=== PATIENT | female | born 1955 | race Caucasian/White ===

== ENCOUNTER 2021-04-01 12:29 | Inpatient (IN) ==
[2021-04-01] MEDS ORDERED: metroNIDAZOLE 500 MG/100 ML BAG IV STA (13:06)
[2021-04-01] MEDS ORDERED: CIPROFLOXACIN / D5W 400 MG/200 ML BAG IV STA (13:06)
[2021-04-01 13:12] LABS: Basophils # (auto) 0.01 K/uL (0-0.2); Basophils % (auto) 0.1 %; Eosinophils # (auto) 0.02 K/uL (0-0.5); Eosinophils % (auto) 0.3 %; Hematocrit (blood only) 41.6 % (37-47); Hemoglobin 14.2 g/dL (12.0-16.0); Immature Granulocytes # (auto) 0.01 K/uL (0.00-0.02); Immature Granulocytes % (auto) 0.1 %; Lymphocytes # (auto) 0.84 K/uL (1.2-3.4); Lymphocytes % (auto) 11.9 %; Mean Corpuscular Hemoglobin 31.1 pg (25-34); Mean Corpuscular Hgb Conc 34.1 g/dL (32-36); Mean Corpuscular Volume 91.2 fL (80-100); Mean Platelet Volume 9.1 fL (7.4-10.4); Monocytes # (auto) 0.53 K/uL (0.11-0.59); Monocytes % (auto) 7.5 %; Neutrophils # (auto) 5.62 K/uL (1.4-6.5); Neutrophils % (auto) 80.1 %; Platelet Count 198 K/uL (130-400); RDW Coefficient of Variation 13.3 % (11.5-14.5); RDW Standard Deviation 44.4 fL (36.4-46.3); Red Blood Count 4.56 M/uL (4.2-5.4); White Blood Count 7.03 K/uL (4.8-10.8)
[2021-04-01] MEDS: SODIUM CHLORIDE 0.9% 1000ML 1,000 ML IV SCH (13:24)
[2021-04-01 13:32] LABS: Alanine Aminotransferase 18 U/L (12-78); Albumin Level 3.2 gm/dl (3.4-5.0); Aspartate Aminotransferase 20 U/L (15-37); BUN Creatinine Ratio 9.4 (10-20); Blood Urea Nitrogen 7 mg/dl (7-18); Calcium 8.8 mg/dl (8.5-10.1); Carbon Dioxide 25 mmol/L (21-32); Chloride 107 mmol/L (98-107); Creatinine Clr Calc Pharmacy 72.2 ml/min; Est GFR (African American) 100.9 ml/min; Glucose 133 mg/dl (70-99); Lipase 1242 U/L (73-393); Potassium 3.9 mmol/L (3.5-5.1); Sodium 139 mmol/L (136-145)
[2021-04-01 13:35] LABS: Alkaline Phosphatase 69 U/L (45-117); Bilirubin Direct < 0.1 mg/dl (0-0.2); Bilirubin,Total 0.3 mg/dl (0.2-1); Total Protein 6.1 gm/dl (6.4-8.2)
--- NOTE | 2021-04-01 13:51 | Emergency Department Note ---
History of Present Illness General Chief complaint: Referred by Doctor Stated complaint: REFERRED BY PCP Time Seen by Provider: 04/01/21 12:35 History of Present Illness Provider complaint: Referred by etl informatica architect Onset (ago): day(s) 1 Maximum Pain Intensity: 5 Current Pain Intensity: 0 66-year-old female was referred to the emergency department for admission by GI Dr. Barrios. Dr. Barrios had performed an ERCP on the patient for recurrent sphincter of Oddi spasm and the patient had to have a biliary stent placed. He wants the patient to be admitted to the hospitalist team and try to directly admit the patient however they were unable to accommodate this so the patient was referred to the emergency department for admission. Patient denies any nausea vomiting. She currently denies any abdominal pain. Past Med/Surg History Medical History (Updated 04/01/21 @ 14:17 by Jc Jackson) Depression PUD (peptic ulcer disease) Surgical History (Updated 04/01/21 @ 14:17 by Jc Jackson) History of appendectomy History of biliary duct stent placement Social History Smoking Status: Never smoker Preferred Language: Welsh Feels Safe at Home: Yes Review of Systems A total of 6 systems reviewed and were otherwise negative Physical Exam Vital Signs Vital Signs - 24 hr 04/01/21 12:50 04/01/21 12:54 04/01/21 13:00 Temperature 36.8 C Temperature Source Oral Pulse Rate 93 H 85 86 Pulse Rate from SpO2 Sensor 86 86 Respiratory Rate 18 24 24 Respiratory Depth Normal Blood Pressure 140/88 131/87 Blood Pressure Mean 105 101 Pulse Oximetry 96 96 97 Sepsis Recent Fever Within 48 Hours No Sepsis New/Unexplained Change in Mental Status N/A Sepsis Action Taken by Nursing No Action Required 04/01/21 13:30 Temperature Temperature Source Pulse Rate 84 Pulse Rate from SpO2 Sensor 83 Respiratory Rate 21 Respiratory Depth Blood Pressure Blood Pressure Mean Pulse Oximetry 96 Sepsis Recent Fever Within 48 Hours Sepsis New/Unexplained Change in Mental Status Sepsis Action Taken by Nursing Physical Exam GENERAL: She is oriented to person, place, and time. She appears well-developed and well-nourished. She does not appear distressed. HENT: Exam performed. -Head: Normocephalic and atraumatic. -Right Ear: External ear normal. No mastoid tenderness. -Left Ear: External ear normal. No mastoid tenderness. -Mouth/Throat: The oropharynx is clear and moist. No trismus in the jaw. No dental abscesses or uvula swelling. No oropharyngeal exudate or tonsillar abscesses. EYES: Conjunctivae and EOM are normal. Pupils are equal, round, and reactive to light. Right eye exhibits no discharge. Left eye exhibits no discharge. No scleral icterus. NECK: Normal range of motion. Neck supple. No JVD present. No spinous process tenderness present. No carotid bruit present. No rigidity. No tracheal deviation and normal range of motion present. No Brudzinski's sign and no Kernig's sign noted. CV: Normal rate, regular rhythm, normal heart sounds and intact distal pulses. There is no peripheral edema. Palpable radial pulses bue. PULM/CHEST: Effort normal and breath sounds normal. No respiratory distress. No stridor. She has no wheezes. She has no rales. -Chest Wall: She exhibits no tenderness. ABD: The abdomen is soft. Bowel sounds are normal. She has no distension. No mass is present. There is no tenderness. There is no rebound, no guarding, no Pop's sign and no tenderness at McBurney's point. Rovsig negative MUSC/SKEL: Normal range of motion. There is no peripheral edema, tenderness or deformity. LYMPH: No cervical adenopathy. NEURO: She is alert and oriented to person, place, and time. She has normal s trength. No cranial nerve deficit or sensory deficit. Coordination and gait normal. GCS eye subscore is 4. GCS verbal subscore is 5. GCS motor subscore is 6. Cerebellar tests wnl. SKIN: Skin is warm and dry. She is not diaphoretic. PSYCH: She has a normal mood and affect. Behavior is normal. Judgment and thought content normal. Course Course 1235: The patient was evaluated in room B4. A complete history and physical exam was performed Administered Medications Sodium Chloride (Nss 1000ml) 1,000 mls @ 80 mls/hr IV .[id number] MINNIE Stop: 05/01/21 12:44 Last Admin: 04/01/21 13:24 Dose: 80 mls/hr Documented by: [id number] Discontinued Medications Ciprofloxacin (Cipro / D5w) 400 mg in 200 mls @ 200 mls/hr IV NOW STA Stop: 04/01/21 14:05 Last Admin: 04/01/21 13:15 Dose: Not Given Documented by: [id number] Metronidazole (Flagyl) 500 mg in 100 mls @ 100 mls/hr IV NOW STA Stop: 04/01/21 14:05 Last Admin: 04/01/21 13:24 Dose: 100 mls/hr Documented by: [id number] Medical Decision Making Laboratory Data Result diagrams: 04/01/21 12:55 04/01/21 12:55 Lab Results 04/01/21 04/01/21 04/01/21 Range/Units 12:55 12:55 13:05 WBC 7.03 (4.8-10.8) K/uL RBC 4.56 (4.2-5.4) M/uL Hgb 14.2 (12.0-16.0) g/dL Hct 41.6 (37-47) % MCV 91.2 (80-100) fL MCH 31.1 (25-34) pg MCHC 34.1 (32-36) g/dL RDW Std Deviation 44.4 (36.4-46.3) fL RDW Coeff of Dyana 13.3 (11.5-14.5) % Plt Count 198 (130-400) K/uL MPV 9.1 (7.4-10.4) fL Immature Gran % (Auto) 0.1 % Neut % (Auto) 80.1 % Lymph % (Auto) 11.9 % [place] % (Auto) 7.5 % Eos % (Auto) 0.3 % Baso % (Auto) 0.1 % Neut # (Auto) 5.62 (1.4-6.5) K/uL Lymph # (Auto) 0.84 L (1.2-3.4) K/uL [place] # (Auto) 0.53 (0.11-0.59) K/uL Eos # (Auto) 0.02 (0-0.5) K/uL Baso # (Auto) 0.01 (0-0.2) K/uL Immature Gran # (Auto) 0.01 (0.00-0.02) K/uL Sodium 139 (136-145) mmol/L Potassium 3.9 (3.5-5.1) mmol/L Chloride 107 (98-107) mmol/L Carbon Dioxide 25 (21-32) mmol/L Anion Gap 7.0 (3-11) BUN 7 (7-18) mg/dl Creatinine 0.73 (0.6-1.2) mg/dl Est Cr Clr Drug Dosing 72.2 ml/min Est GFR ( Amer) 100.9 ml/min Est GFR (Non-Af Amer) 87.0 ml/min BUN/Creatinine Ratio 9.4 L (10-20) Glucose 133 H (70-99) mg/dl Calcium 8.8 (8.5-10.1) mg/dl Total Bilirubin 0.3 (0.2-1) mg/dl Direct Bilirubin < 0.1 (0-0.2) mg/dl AST 20 (15-37) U/L ALT 18 (12-78) U/L Alkaline Phosphatase 69 (45-117) U/L Total Protein 6.1 L (6.4-8.2) gm/dl Albumin 3.2 L (3.4-5.0) gm/dl Lipase 1242 H (73-393) U/L COVID-19 Eval Order Covid19 at [facility] SARS-CoV-2 (PCR) (Negative) 04/01/21 Range/Units 13:05 WBC (4.8-10.8) K/uL RBC (4.2-5.4) M/uL Hgb (12.0-16.0) g/dL Hct (37-47) % MCV (80-100) fL MCH (25-34) pg MCHC (32-36) g/dL RDW Std Deviation (36.4-46.3) fL RDW Coeff of Dyana (11.5-14.5) % Plt Count (130-400) K/uL MPV (7.4-10.4) fL Immature Gran % (Auto) % Neut % (Auto) % Lymph % (Auto) % [place] % (Auto) % Eos % (Auto) % Baso % (Auto) % Neut # (Auto) (1.4-6.5) K/uL Lymph # (Auto) (1.2-3.4) K/uL [place] # (Auto) (0.11-0.59) K/uL Eos # (Auto) (0-0.5) K/uL Baso # (Auto) (0-0.2) K/uL Immature Gran # (Auto) (0.00-0.02) K/uL Sodium (136-145) mmol/L Potassium (3.5-5.1) mmol/L Chloride (98-107) mmol/L Carbon Dioxide (21-32) mmol/L Anion Gap (3-11) BUN (7-18) mg/dl Creatinine (0.6-1.2) mg/dl Est Cr Clr Drug Dosing ml/min Est GFR ( Amer) ml/min Est GFR (Non-Af Amer) ml/min BUN/Creatinine Ratio (10-20) Glucose (70-99) mg/dl Calcium (8.5-10.1) mg/dl Total Bilirubin (0.2-1) mg/dl Direct Bilirubin (0-0.2) mg/dl AST (15-37) U/L ALT (12-78) U/L Alkaline Phosphatase (45-117) U/L Total Protein (6.4-8.2) gm/dl Albumin (3.4-5.0) gm/dl Lipase (73-393) U/L COVID-19 Eval Order SARS-CoV-2 (PCR) NEGATIVE (Negative) MDM Narrative Spoke with patient's GI doctor Dr. Barrios he stated he wanted the patient admitted to the [facility] hospitalist team he recommends that the patient be n.p.o., have IV fluids at 75 cc an hour, received IV antibiotics Flagyl as the patient received Cipro earlier today. He states if there are any questions regarding her that he is to be contacted via his cell phone or [place] text directly. I discussed this with Roseanne damian [facility] [employer]IST who acknowledged to contact Dr. Barrios with any questions regarding her procedure or GI ques tions, she states to admit to Dr. Stoner. Impression & Plan History of biliary duct stent placement Discharge Plan Visit Data Chief Complaint: Referred by Doctor Stated Complaint: REFERRED BY PCP ED Provider: Jc Jackson Discharge Problem: History of biliary duct stent placement Patient Disposition: Being Evaluated by Hospitalist Forms Stand Alone Forms: My [facility] Referrals Referrals: Shonda May, [Primary Care Provider] -
--- NOTE | 2021-04-01 16:09 | Gastrointestinal Consultation ---
Date of Consultation April 01, 2021 Assessment & Plan (1) Sphincter of Oddi spasm: s/p ERCP with sphincterotomy requiring FCMS placement due to periampullary extravasation (Type II). Currently doing well with no symptoms, Vitals and labs normal. Recommend: Clinical observation. NPO for now. IV Hydration. IV PPI. IV Octreotide once daily to decrease gastric output. IV Cipro/Flagyl. Plan for CT scan abdomen with IV/PO contrast tomorrow. Call me anytime including after hours regarding the patient's management or any change in her clinical status. 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 She admitted to the hospital for observation. She feels fine and doing well now, no abdominal pain or other symptoms. Labs reviewed and WBC and LFTs normal. Her Lipase is elevated which is expected as it was measured im mediately after an ERCP. Allergies Allergy/AdvReac Type Severity Reaction Status Date / Time amoxicillin Allergy Unknown Unverified 04/01/21 14:23 azithromycin Allergy Unknown Unverified 04/01/21 14:23 Penicillins Allergy Unknown Unverified 04/01/21 14:23 Home Medications Medication Instructions Recorded Confirmed Type clindamycin phosphate 1 % lotion 1 applic TOPICAL BID 04/01/21 04/01/21 History clonazepam 0.5 mg tablet 0.25 mg PO DAILY 04/01/21 04/01/21 History clonazepam 0.5 mg tablet 0.5 mg PO HS 04/01/21 04/01/21 History duloxetine 60 mg capsule,delayed 120 mg PO DAILY 04/01/21 04/01/21 History release sprinkle lamotrigine 25 mg tablet 100 mg PO DAILY 04/01/21 04/01/21 History levothyroxine 75 mcg tablet 75 mcg PO DAILY 04/01/21 04/01/21 History (Synthroid) pantoprazole 40 mg tablet,delayed 40 mg PO BID 04/01/21 04/01/21 History release semaglutide (Ozempic) 0.25 mg SUBCUT WK 04/01/21 04/01/21 History sucralfate 1 gram tablet 1 g PO BID 04/01/21 04/01/21 History sumatriptan succinate 100 mg tablet 100 mg PO DAILY PRN 04/01/21 04/01/21 History trazodone 100 mg tablet 100 mg PO HS 04/01/21 04/01/21 History Patient History Medical History (Updated 04/01/21 @ 16:16 by Scott Barrios MD) Depression PUD (peptic ulcer disease) Surgical History (Updated 04/01/21 @ 14:17 by Jc Jackson) History of appendectomy History of biliary duct stent placement Social History Smoking Status: Never smoker Preferred Language: Turkmen Feels Safe at Home: Yes Review of Systems Constitutional: no fever, no chills, no fatigue and no weight loss Eyes: no eye pain and no worsening vision Ear, Nose, Mouth, Throat: no tinnitus, no dizziness, no nasal discharge and no epistaxis Respiratory: no cough, no dyspnea, no dyspnea on exertion and no wheezing Cardiovascular: no chest pain, no orthopnea, no palpitations and no edema Gastrointestinal: as per Subjective / HPI Genitourinary: no dysuria, no urinary frequency, no urinary incontinence and no hematuria Musculoskeletal: no stiffness and no myalgia Neurologic: no localized weakness, no paralysis, no tremor(s) and no headache(s) Endocrine: no polydipsia and no polyuria Hematologic / Lymphatic: no easy bleeding and no night sweats Physical Exam Constitutional: + well hydrated, cooperative and comfortable Eyes: PERRL, conjunctivae normal, anicteric sclerae ENMT: external ear and nose normal, oropharynx normal Neck: normal visual inspection and trachea midline Respiratory: normal respiratory effort, lungs clear to auscultation Auscultation: no wheezes Cardiovascular: RRR, no murmur, no edema Gastrointestinal (Abdomen): normal bowel sounds, soft, nontender, no hepatosplenomegaly Musculoskeletal: no cyanosis or clubbing, extremities motor strength 5/5 Skin: no rashes, warm and dry Neurologic: awake; no focal motor deficits Motor/Sensory: no tremor Results & Data ([facility]) Vital Signs (Past 12 Hours) Vital Signs Temp Pulse Resp BP Pulse Ox 04/01/21 14:54 83 18 108/72 97 04/01/21 13:30 84 21 96 04/01/21 13:00 86 24 131/87 97 04/01/21 12:54 85 24 96 04/01/21 12:50 36.8 C 93 H 18 140/88 96 Laboratory Results Laboratory Results - last 24 hr 04/01/21 04/01/21 04/01/21 12:55 12:55 13:05 WBC 7.03 RBC 4.56 Hgb 14.2 Hct 41.6 MCV 91.2 MCH 31.1 MCHC 34.1 RDW Std Deviation 44.4 RDW Coeff of Dyana 13.3 Plt Count 198 MPV 9.1 Immature Gran % (Auto) 0.1 Neut % (Auto) 80.1 Lymph % (Auto) 11.9 [place] % (Auto) 7.5 Eos % (Auto) 0.3 Baso % (Auto) 0.1 Neut # (Auto) 5.62 Lymph # (Auto) 0.84 L [place] # (Auto) 0.53 Eos # (Auto) 0.02 Baso # (Auto) 0.01 Immature Gran # (Auto) 0.01 Sodium 139 Potassium 3.9 Chloride 107 Carbon Dioxide 25 Anion Gap 7.0 BUN 7 Creatinine 0.73 Est Cr Clr Drug Dosing 72.2 Est GFR ( Amer) 100.9 Est GFR (Non-Af Amer) 87.0 BUN/Creatinine Ratio 9.4 L Glucose 133 H Calcium 8.8 Total Bilirubin 0.3 Direct Bilirubin < 0.1 AST 20 ALT 18 Alkaline Phosphatase 69 Total Protein 6.1 L Albumin 3.2 L Lipase 1242 H COVID-19 Eval Order Covid19 at [facility] SARS-CoV-2 (PCR) 04/01/21 13:05 WBC RBC Hgb Hct MCV MCH MCHC RDW Std Deviation RDW Coeff of Dyana Plt Count MPV Immature Gran % (Auto) Neut % (Auto) Lymph % (Auto) [place] % (Auto) Eos % (Auto) Baso % (Auto) Neut # (Auto) Lymph # (Auto) [place] # (Auto) Eos # (Auto) Baso # (Auto) Immature Gran # (Auto) Sodium Potassium Chloride Carbon Dioxide Anion Gap BUN Creatinine Est Cr Clr Drug Dosing Est GFR ( Amer) Est GFR (Non-Af Amer) BUN/Creatinine Ratio Glucose Calcium Total Bilirubin Direct Bilirubin AST ALT Alkaline Phosphatase Total Protein Albumin Lipase COVID-19 Eval Order SARS-CoV-2 (PCR) NEGATIVE
[2021-04-01] MEDS: metroNIDAZOLE 500 MG/100 ML BAG IV SCH (16:43)
--- NOTE | 2021-04-01 17:09 | History & Physical Report ---
Date of Service April 01, 2021 Assessment & Plan (1) History of biliary duct stent placement: (2) Sphincter of Oddi spasm: Plan: -Admit to [facility] -s/p ERCP with sphincterotomy requiring FCMS placement due to periampullary extravasation (Type II) -N.p.o., IVF -IV Cipro/Flagyl -IV PPI, IV octreotide -Lipase 1200 -follow-up in a.m. with LFTs -CT ABD/pelvis IV/p.o. contrast tomorrow morning -Per Dr. Barrios - "Call me anytime including after hours regarding the patient's management or any change in her clinical status" (3) Hypothyroidism: Plan: -Continue levothyroxine (4) Anxiety: (5) Depression: Plan: -Continue home meds (6) Insulin resistance: Plan: -Managed with weekly Ozempic at home -Monitor glucose -Follows with GI nutrition (7) DVT prophylaxis: Plan: -SCDs Admission and Anticipated Discharge Date Admission Date: April 01, 2021 History of Present Illness Chief Complaint: Referred to hospital post ERCP Primary Care Provider: Shonda May DO 66-year-old female PMH hypothyroidism, insulin resistance, GERD, anxiety, depression, sphincter of Oddi dysfunction s/p ERCP x 2 in the past, who was referred from outpatient [facility] post (per GI note) "elective ERCP today for treatment of recurrent SOD, 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 Currently patient reports mild nausea, otherwise feeling well. Denies pain. Reports ongoing GI issues for the past few months (nausea, poor appetite, epiga stric discomfort, diarrhea). No fevers or chills. Denies chest pain or shortness of breath. No lightheadedness, dizziness, diaphoresis, syncopal events. She denies urinary symptoms. In the ED, labs are unremarkable with exception of lipase 1200. Patient is hemodynamically stable. Patient received IV Cipro, IV Flagyl, IVF per the discretion of GI. Allergies Allergy/AdvReac Type Severity Reaction Status Date / Time amoxicillin Allergy Unknown Unverified 04/01/21 14:23 azithromycin Allergy Unknown Unverified 04/01/21 14:23 Penicillins Allergy Unknown Unverified 04/01/21 14:23 Home Medications Medication Instructions Recorded Confirmed Type clindamycin phosphate 1 % lotion 1 applic TOPICAL BID 04/01/21 04/01/21 History clonazepam 0.5 mg tablet 0.25 mg PO DAILY 04/01/21 04/01/21 History clonazepam 0.5 mg tablet 0.5 mg PO HS 04/01/21 04/01/21 History duloxetine 60 mg capsule,delayed 120 mg PO DAILY 04/01/21 04/01/21 History release sprinkle lamotrigine 25 mg tablet 100 mg PO DAILY 04/01/21 04/01/21 History levothyroxine 75 mcg tablet 75 mcg PO DAILY 04/01/21 04/01/21 History (Synthroid) pantoprazole 40 mg tablet,delayed 40 mg PO BID 04/01/21 04/01/21 History release semaglutide (Ozempic) 0.25 mg SUBCUT WK 04/01/21 04/01/21 History sucralfate 1 gram tablet 1 g PO BID 04/01/21 04/01/21 History sumatriptan succinate 100 mg tablet 100 mg PO DAILY PRN 04/01/21 04/01/21 History trazodone 100 mg tablet 100 mg PO HS 04/01/21 04/01/21 History Past Med/Surg History Medical History (Updated 04/01/21 @ 17:21 by BRYCE Pearson) Anxiety Depression Hypothyroidism Insulin resistance PUD (peptic ulcer disease) Sphincter of Oddi spasm Surgical History H/O dilation and curettage History of appendectomy History of biliary duct stent placement History of cholecystectomy Status post breast reduction Family History Mother Pancreatic cancer Social History Smoking Status: Never smoker Second Hand Exposure: No; Do You Dip or Chew Tobacco: No; Tobacco Cessation Education Requested by Patient: No Hx Alcohol Use: No Hx Substance Use: No Preferred Language: Cuban Communication Ability: Effective Clinical Resource Manager Required: No Beliefs That Will Affect Care: None Current Living Situation: Spouse Feels Safe at Home: Yes Safety Concerns: Feels Safe At This Time Assistive Devices: None Review of Systems Review of Systems: ROS per HPI, all other systems reviewed and negative Physical Exam Constitutional: WD/WN, vitals as above Eyes: PERRL, conjunctivae normal, anicteric sclerae ENMT: external ear and nose normal, oropharynx normal Respiratory: normal respiratory effort, lungs clear to auscultation Cardiovascular: Rate/Rhythm: regular rate and regular rhythm Vessels: normal peripheral pulses Extremities: no edema Gastrointestinal (Abdomen): Inspection/Auscultation: normal bowel sounds Percussion/Palpation: + abdomen tender (mild epigastric with deep palpation) and abdomen soft; no hepatosplenomegaly Musculoskeletal: no cyanosis or clubbing, extremities motor strength 5/5 Skin: no rashes, warm and dry Neurologic: PERRL, EOMI, accommodation nl, no face palsy, no dysarthria Psychiatric: A+Ox3, euthymic affect Results & Data Results & Data ([facility]) Vital Signs (Past 12 Hours) Vital Signs Temp Pulse Resp BP Pulse Ox 04/01/21 14:54 83 18 108/72 97 04/01/21 13:30 84 21 96 04/01/21 13:00 86 24 131/87 97 04/01/21 12:54 85 24 96 04/01/21 12:50 36.8 C 93 H 18 140/88 96 Laboratory Results Short CBC 04/01/21 Range/Units 12:55 WBC 7.03 (4.8-10.8) K/uL Hgb 14.2 (12.0-16.0) g/dL Hct 41.6 (37-47) % Plt Count 198 (130-400) K/uL [facility] 04/01/21 12:55 Sodium 139 Potassium 3.9 Chloride 107 Carbon Dioxide 25 BUN 7 Creatinine 0.73 Glucose 133 H Calcium 8.8 Liver Function 04/01/21 Range/Units 12:55 Total Bilirubin 0.3 (0.2-1) mg/dl Direct Bilirubin < 0.1 (0-0.2) mg/dl AST 20 (15-37) U/L ALT 18 (12-78) U/L Alkaline Phosphatase 69 (45-117) U/L Albumin 3.2 L (3.4-5.0) gm/dl Code Status & VTE Plan Code Status Patient is a full code as per my discussion with her. VTE Prophylaxis Plan VTE Prophylaxis will be ordered: Yes Supervising Physician Co-Signing Physician Notes History and physical exam performed by me, detailed by Rosaenne WU, notable for 67-year-old woman with hypothyroidism, insulin resistance, GERD, anxiety depression, sphincter of Oddi dysfunction status post ERCP x2 in the past who had elective ERCP today for recurrent SOD was noted to have papillary stenosis related to scarring from prior therapies with a treatment of biliary access but noted to have periampullary retroperitoneal extravasation of contrast after extending the sphincterotomy and a fully covered metal stent was placed to seal the area per report; pain admitted for observation postprocedure Patient currently under reports some abdominal discomfort. Exam was mostly unremarkable. Lab work notable for elevated lipase. We will keep n.p.o. for now GI recommendations noted Continue IV PPI and octreotide Continue IV Cipro and Flagyl We will get CT abdomen with IV and p.o. contrast tomorrow per GI. Agree with other plans as detailed by Roseanne WU
[2021-04-01] MEDS: CIPROFLOXACIN / D5W 400 MG/200 ML BAG IV SCH (18:01)
[2021-04-01] MEDS: OCTREOTIDE ACETATE 100 MCG in SYRINGE 9 ML IV SCH (18:04)
[2021-04-01] MEDS: ONDANSETRON INJ 2 MG/ML 2 ML VIAL IV PRN (18:17)
[2021-04-01] MEDS ORDERED: FLUARIX QUADRIVALENT 0.5 ML SYR IM ONE (19:00)
[2021-04-01] MEDS: clonazePAM 0.5 MG TAB PO SCH (20:27)
[2021-04-01] MEDS: traZODone HCL 100 MG TAB PO SCH (20:27)
[2021-04-01] MEDS: SUCRALFATE 1 GM TAB PO SCH (20:27)
[2021-04-01] MEDS ORDERED: PANTOprazole 40 MG TAB PO SCH (21:00)
[2021-04-01] MEDS: ACETAMINOPHEN 325 MG TAB PO PRN (23:42)
[2021-04-02] MEDS: metroNIDAZOLE 500 MG/100 ML BAG IV SCH ×4 (01:07→23:23)
[2021-04-02] MEDS: SODIUM CHLORIDE 0.9% 1000ML 1,000 ML IV SCH ×2 (01:57→15:48)
[2021-04-02] MEDS: CIPROFLOXACIN / D5W 400 MG/200 ML BAG IV SCH ×2 (05:07→17:54)
[2021-04-02] MEDS: LEVOTHYROXINE SODIUM 75 MCG TABLET PO SCH (05:07)
[2021-04-02 07:28] LABS: Hematocrit (blood only) 42.7 % (37-47); Hemoglobin 14.5 g/dL (12.0-16.0); Mean Corpuscular Hemoglobin 31.1 pg (25-34); Mean Corpuscular Volume 91.6 fL (80-100); Mean Platelet Volume 9.4 fL (7.4-10.4); Platelet Count 186 K/uL (130-400); RDW Coefficient of Variation 13.5 % (11.5-14.5); RDW Standard Deviation 44.6 fL (36.4-46.3); Red Blood Count 4.66 M/uL (4.2-5.4); White Blood Count 6.65 K/uL (4.8-10.8)
[2021-04-02] MEDS: SUMAtriptan succinate 100 MG TAB PO PRN (07:47)
[2021-04-02 08:02] LABS: BUN Creatinine Ratio 7.9 (10-20); Calcium 8.7 mg/dl (8.5-10.1); Creatinine Clr Calc Pharmacy 90.9 ml/min; Est GFR (African American) 112.9 ml/min; Est GFR (Non-African American) 97.4 ml/min; Potassium 3.4 mmol/L (3.5-5.1)
[2021-04-02 08:05] LABS: Albumin Globulin Ratio 1.1 (0.9-2); Bilirubin,Total 0.7 mg/dl (0.2-1); Globulin 2.8 gm/dl (2.5-4.0); Total Protein 5.8 gm/dl (6.4-8.2)
[2021-04-02] MEDS: ONDANSETRON INJ 2 MG/ML 2 ML VIAL IV PRN ×2 (09:11→16:37)
[2021-04-02] MEDS ORDERED: OPTIRAY 320 100ml IV ONE (09:57)
[2021-04-02] MEDS: lamoTRIgine 100 MG TAB PO SCH (10:16)
[2021-04-02] MEDS: DULoxetine HCL 60 MG CAP PO SCH (10:16)
[2021-04-02] MEDS: SUCRALFATE 1 GM TAB PO SCH ×2 (10:16→21:24)
[2021-04-02] MEDS: OCTREOTIDE ACETATE 100 MCG in SYRINGE 9 ML IV SCH (10:17)
--- NOTE | 2021-04-02 10:27 | CT Scan Report ---
CT abd pelvis oral and IV con CLINICAL HISTORY: s/p ERCP w/ biliary leak TECHNIQUE: Helical axial images of the abdomen and pelvis were obtained and displayed. Automated dose lowering techniques and/or adjustment according to patient size were utilized for this exam. This e xam was performed with intravenous contrast. COMPARISON: None available at the time of this dictation. FINDINGS: Lower chest: Bibasilar atelectasis is seen. Liver: Left shift Gallbladder and biliary tree: Surgically absent. There is diffuse soft tissue stranding and air in th e gallbladder fossa. Pneumobilia is seen. A stent is noted in the distal biliary duct. Pancreas: There is prominence of the pancreatic duct measuring up to 4 mm in diameter in the pancreat ic body. Spleen: Unremarkable. Adrenals: Unremarkable. Kidneys and ureters: Unremarkable. Bladder: Unremarkable. Reproductive organs: Unremarkable. Bowel: Status post appendectomy. Lymph nodes Retroperitoneal: Unremarkable. Mesenteric: Subcentimeter lymph nodes are noted. Pelvic: Unremarkable. Peritoneum: There is pneumoperitoneum and soft tissue stranding most prominently in the right upper q uadrant and mid abdomen. Vessels: Atherosclerotic calcifications are seen. Abdominal wall: Unremarkable. Bones: Degenerative changes in the visualized spine. IMPRESSION: 1. Status post cholecystectomy with placement of a biliary stent. There is pneumoperitoneum and fat stranding secondary to biliary leak. 2. Prominence of the biliary ducts with apparent atrophy of the pancreatic tail. 3. Physiologic pneumobilia. ACT 112: Negative or not required by law. Electronically signed by: Jerzy Mcdonough M.D. 04/02/2021 10:25 AM
[2021-04-02] MEDS: clonazePAM 0.25 MG TAB PO SCH (10:30)
--- NOTE | 2021-04-02 11:12 | Hospitalist Progress Note ---
Date of Service April 02, 2021 Assessment & Plan (1) History of biliary duct stent placement: (2) Sphincter of Oddi spasm: Plan: Admitted to [facility] S/p ERCP with sphincterotomy requiring FCMS placement due to periampullary extravasation (Type II) Keep NPO for now with gentle IV fluids, continue IV cipro/flagyl, IV PPI, IV Octreotide, antiemetics CT abd/pelvis with pneumoperitoneum and fat stranding secondary to biliary leak Discussed with GI. CT findings consistent with biliary leak which is now fixed. No changes to current plan Continue trending CMP, lipase Per Dr. Barrios - "Call me anytime including after hours regarding the patient's management or any change in her clinical status" (3) Hypothyroidism: Plan: Continue levothyroxine (4) Anxiety: (5) Depression: Plan: Continue home meds (6) Insulin resistance: Plan: Managed with weekly Ozempic at home Monitor glucose Follows with GI nutrition (7) DVT prophylaxis: Plan: SCDs for now. Consider adding chemical ppx tomorrow PCP: Lalo Dispo: Admitted to med/surg. Patient seen in collaboration with Dr. Alva. Please see addendum. Admission and Anticipated Discharge Date Admission Date: April 01, 2021 Supervising Physician Co-Signing Physician Notes Patient seen and examined Reported migraine earlier this AM which is improved with imitrex Had nausea and one episode of vomiting last night Reports some abd discomfort Physical exam notable for mild right abd tenderness Labs notable for elevated lipase, K of 3.4 CT abd/P today showed pneumoperitoneum/fat stranding due to biliary leak, physiologic pneumobilia Hemodynamically stable GI on board Continue IV ppi, octreotide and npo Continue IVF Agree with other plans as detailed by Samanta Reveles PA-C Subjective Patient seen and examined in 387-1. Feeling nauseated today but slightly improved after napping. Just received additional antiemetic. Does have diffuse abdominal pain similar to yesterday. Denies any fever, chills, lightheadedness, chest pain, shortness of breath, vomiting, dysuria, diarrhea or constipation. Review of Systems Review of Systems: ROS per HPI, all other systems reviewed and negative Physical Exam Physical Exam: Gen: WD/WN, NAD, lying in bed, A&Ox3 HEENT: Normocephalic, atraumatic, conjunctivae moist, sclerae anicteric, mucous membranes moist Lung: Clear to Auscultation bilaterally, no wheezes/rales/rhonchi Heart: Regular rate, regular rhythm, no murmurs, rubs, or gallops Abdomen: Soft, diffusely tender but no guarding, +BS x 4 Extremities: no edema Skin: Warm, no rash Results & Data Results & Data ([facility]) Vital Signs (Past 12 Hours) Vital Signs Temp Pulse Resp BP BP Pulse Ox 04/02/21 10:58 37.3 C 86 14 146/86 H 96 04/02/21 08:14 37 C 100 H 16 117/81 117/81 92 Laboratory Results Short CBC 04/02/21 Range/Units 07:17 WBC 6.65 (4.8-10.8) K/uL Hgb 14.5 (12.0-16.0) g/dL Hct 42.7 (37-47) % Plt Count 186 (130-400) K/uL BMP 04/02/21 07:17 Sodium 142 Potassium 3.4 L Chloride 112 H Carbon Dioxide 25 BUN 5 L Creatinine 0.58 L Glucose 127 H Calcium 8.7 Liver Function 04/02/21 Range/Units 07:17 Total Bilirubin 0.7 (0.2-1) mg/dl AST 14 L (15-37) U/L ALT 13 (12-78) U/L Alkaline Phosphatase 67 (45-117) U/L Albumin 3.0 L (3.4-5.0) gm/dl Diagnostic Findings Abdomen/Pelvis CT 04/02/21 10:00 CT abd pelvis oral and IV con CLINICAL HISTORY: s/p ERCP w/ biliary leak TECHNIQUE: Helical axial images of the abdomen and pelvis were obtained and displayed. Automated dose lowering techniques and/or adjustment according to patient size were utilized for this exam. This exam was performed with intravenous contrast. COMPARISON: None available at the time of this dictation. FINDINGS: Lower chest: Bibasilar atelectasis is seen. Liver: Left shift Gallbladder and biliary tree: Surgically absent. There is diffuse soft tissue stranding and air in the gallbladder fossa. Pneumobilia is seen. A stent is noted in the distal biliary duct. Pancreas: There is prominence of the pancreatic duct measuring up to 4 mm in diameter in the pancreatic body. Spleen: Unremarkable. Adrenals: Unremarkable. Kidneys and ureters: Unremarkable. Bladder: Unremarkable. Reproductive organs: Unremarkable. Bowel: Status post appendectomy. Lymph nodes Retroperitoneal: Unremarkable. Mesenteric: Subcentimeter lymph nodes are noted. Pelvic: Unremarkable. Peritoneum: There is pneumoperitoneum and soft tissue stranding most prominently in the right upper quadrant and mid abdomen. Vessels: Atherosclerotic calcifications are seen. Abdominal wall: Unremarkable. Bones: Degenerative changes in the visualized spine. IMPRESSION: 1. Status post cholecystectomy with placement of a biliary stent. There is pneumoperitoneum and fat stranding secondary to biliary leak. 2. Prominence of the biliary ducts with apparent atrophy of the pancreatic tail. 3. Physiologic pneumobilia. ACT 112: Negative or not required by law. Electronically signed by: Jerzy Mcdonough M.D. 04/02/2021 10:25 AM
--- NOTE | 2021-04-02 11:49 | Gastroenterology Progress Note ---
Date of Service April 02, 2021 Assessment & Plan (1) Sphincter of Oddi spasm: (2) Biliary sludge: Plan: Pt is a 66 y/o female admitted yesterday s/p ERCP with sphincterotomy requiring FCMS placement due to periampullary extravasation. Overnight has done well; CTA P pending. Lipase trending down; LFTs and WBC WNL. She's afebrile. Abd soft. - Continue NPO for now - IVF - IV PPI - IV Octreotide - IV Cipro/Flagyl Admission and Anticipated Discharge Date Admission Date: April 01, 2021 Supervising Physician Co-Signing Physician Notes I performed a history and physical examination of the patient today, including specifically on physical exam - soft abdomen. I have discussed the patient's management with the advanced practitioner. Please refer to the nurse practitioner's note for the documented findings and plan of care. Feels fine today, some mild RUQ discomfort, not requiring pain meds. Still has nausea but Zofran helps. Afebrile, abdomen is nontender. LFTs normal, no leukocytosis. CT reviewed with radiologist, no contrast extravasation, mild retroperitoneal air is expected after her recent complex ERCP. No fluid collections. CBD stent in place, slight positioned distally but remains in the CBD. Recommend: Continue Current meds and IV Hydration. IV ABx. PRN Zofran Notify me if any change in clinical status. keep NPO for now. Plan is to repeat another CT scan with PO contrast only on Tuesday and if retroperitoneal air resolves then will start clear liquid diet. Subjective Patient seen and examined, chart reviewed. Pt feeling ok this AM; having some mild abd discomfort toward the RLQ and epigastrium. Had some nausea after dri nking contrast but was medicated and no nausea now. No vomiting, stool output, no melena, hematochezia, hematemesis, fever, chills, CP, SOB. Review of Systems Review of Systems: All systems reviewed & are unremarkable except as noted in Subjective Physical Exam Constitutional: WD/WN, vitals as above Eyes: scleara anicteric Neck: trachea midline, no thyromegaly Respiratory: normal respiratory effort, lungs clear to auscultation Cardiovascular: RRR, no murmur, no edema Gastrointestinal (Abdomen): soft, nondistended, BS x 4 quadrants, mild tenderness to the epigastrium/RLQn, no rebound, guarding Skin: no rashes, warm and dry Results & Data ([facility]) Vital Signs (Past 12 Hours) Vital Signs Temp Pulse Resp BP BP Pulse Ox 04/02/21 10:58 37.3 C 86 14 146/86 H 96 04/02/21 08:14 37 C 100 H 16 117/81 117/81 92 Laboratory Results 04/02/21 04/02/21 04/01/21 Range/Units 07:17 07:17 16:41 WBC 6.65 (4.8-10.8) K/uL RBC 4.66 (4.2-5.4) M/uL Hgb 14.5 (12.0-16.0) g/dL Hct 42.7 (37-47) % MCV 91.6 (80-100) fL MCH 31.1 (25-34) pg MCHC 34.0 (32-36) g/dL RDW Std Deviation 44.6 (36.4-46.3) fL RDW Coeff of Dyana 13.5 (11.5-14.5) % Plt Count 186 (130-400) K/uL MPV 9.4 (7.4-10.4) fL Immature Gran % (Auto) % Neut % (Auto) % Lymph % (Auto) % [place] % (Auto) % Eos % (Auto) % Baso % (Auto) % Neut # (Auto) (1.4-6.5) K/uL Lymph # (Auto) (1.2-3.4) K/uL [place] # (Auto) (0.11-0.59) K/uL Eos # (Auto) (0-0.5) K/uL Baso # (Auto) (0-0.2) K/uL Immature Gran # (Auto) (0.00-0.02) K/uL Sodium 142 (136-145) mmol/L Potassium 3.4 L (3.5-5.1) mmol/L Chloride 112 H (98-107) mmol/L Carbon Dioxide 25 (21-32) mmol/L Anion Gap 5.0 (3-11) BUN 5 L (7-18) mg/dl Creatinine 0.58 L (0.6-1.2) mg/dl Est Cr Clr Drug Dosing 90.9 ml/min Est GFR ( Amer) 112.9 ml/min Est GFR (Non-Af Amer) 97.4 ml/min BUN/Creatinine Ratio 7.9 L (10-20) Glucose 127 H (70-99) mg/dl POC Glucose 96 (70-99) mg/dl Calcium 8.7 (8.5-10.1) mg/dl Total Bilirubin 0.7 (0.2-1) mg/dl Direct Bilirubin (0-0.2) mg/dl AST 14 L (15-37) U/L ALT 13 (12-78) U/L Alkaline Phosphatase 67 (45-117) U/L Total Protein 5.8 L (6.4-8.2) gm/dl Albumin 3.0 L (3.4-5.0) gm/dl Globulin 2.8 (2.5-4.0) gm/dl Albumin/Globulin Ratio 1.1 (0.9-2) Lipase 1199 H (73-393) U/L COVID-19 Eval Order SARS-CoV-2 (PCR) (Negative) 04/01/21 04/01/21 04/01/21 Range/Units 13:05 13:05 12:55 WBC (4.8-10.8) K/uL RBC (4.2-5.4) M/uL Hgb (12.0-16.0) g/dL Hct (37-47) % MCV (80-100) fL MCH (25-34) pg MCHC (32-36) g/dL RDW Std Deviation (36.4-46.3) fL RDW Coeff of Dyana (11.5-14.5) % Plt Count (130-400) K/uL MPV (7.4-10.4) fL Immature Gran % (Auto) % Neut % (Auto) % Lymph % (Auto) % [place] % (Auto) % Eos % (Auto) % Baso % (Auto) % Neut # (Auto) (1.4-6.5) K/uL Lymph # (Auto) (1.2-3.4) K/uL [place] # (Auto) (0.11-0.59) K/uL Eos # (Auto) (0-0.5) K/uL Baso # (Auto) (0-0.2) K/uL Immature Gran # (Auto) (0.00-0.02) K/uL Sodium 139 (136-145) mmol/L Potassium 3.9 (3.5-5.1) mmol/L Chloride 107 (98-107) mmol/L Carbon Dioxide 25 (21-32) mmol/L Anion Gap 7.0 (3-11) BUN 7 (7-18) mg/dl Creatinine 0.73 (0.6-1.2) mg/dl Est Cr Clr Drug Dosing 72.2 ml/min Est GFR ( Amer) 100.9 ml/min Est GFR (Non-Af Amer) 87.0 ml/min BUN/Creatinine Ratio 9.4 L (10-20) Glucose 133 H (70-99) mg/dl POC Glucose (70-99) mg/dl Calcium 8.8 (8.5-10.1) mg/dl Total Bilirubin 0.3 (0.2-1) mg/dl Direct Bilirubin < 0.1 (0-0.2) mg/dl AST 20 (15-37) U/L ALT 18 (12-78) U/L Alkaline Phosphatase 69 (45-117) U/L Total Protein 6.1 L (6.4-8.2) gm/dl Albumin 3.2 L (3.4-5.0) gm/dl Globulin (2.5-4.0) gm/dl Albumin/Globulin Ratio (0.9-2) Lipase 1242 H (73-393) U/L COVID-19 Eval Order Covid19 at [facility] SARS-CoV-2 (PCR) NEGATIVE (Negative) 04/01/21 Range/Units 12:55 WBC 7.03 (4.8-10.8) K/uL RBC 4.56 (4.2-5.4) M/uL Hgb 14.2 (12.0-16.0) g/dL Hct 41.6 (37-47) % MCV 91.2 (80-100) fL MCH 31.1 (25-34) pg MCHC 34.1 (32-36) g/dL RDW Std Deviation 44.4 (36.4-46.3) fL RDW Coeff of Dyana 13.3 (11.5-14.5) % Plt Count 198 (130-400) K/uL MPV 9.1 (7.4-10.4) fL Immature Gran % (Auto) 0.1 % Neut % (Auto) 80.1 % Lymph % (Auto) 11.9 % [place] % (Auto) 7.5 % Eos % (Auto) 0.3 % Baso % (Auto) 0.1 % Neut # (Auto) 5.62 (1.4-6.5) K/uL Lymph # (Auto) 0.84 L (1.2-3.4) K/uL [place] # (Auto) 0.53 (0.11-0.59) K/uL Eos # (Auto) 0.02 (0-0.5) K/uL Baso # (Auto) 0.01 (0-0.2) K/uL Immature Gran # (Auto) 0.01 (0.00-0.02) K/uL Sodium (136-145) mmol/L Potassium (3.5-5.1) mmol/L Chloride (98-107) mmol/L Carbon Dioxide (21-32) mmol/L Anion Gap (3-11) BUN (7-18) mg/dl Creatinine (0.6-1.2) mg/dl Est Cr Clr Drug Dosing ml/min Est GFR ( Amer) ml/min Est GFR (Non-Af Amer) ml/min BUN/Creatinine Ratio (10-20) Glucose (70-99) mg/dl POC Glucose (70-99) mg/dl Calcium (8.5-10.1) mg/dl Total Bilirubin (0.2-1) mg/dl Direct Bilirubin (0-0.2) mg/dl AST (15-37) U/L ALT (12-78) U/L Alkaline Phosphatase (45-117) U/L Total Protein (6.4-8.2) gm/dl Albumin (3.4-5.0) gm/dl Globulin (2.5-4.0) gm/dl Albumin/Globulin Ratio (0.9-2) Lipase (73-393) U/L COVID-19 Eval Order SARS-CoV-2 (PCR) (Negative)
[2021-04-02] MEDS: PANTOprazole 40 MG in SYRINGE 0 ML IV SCH (12:07)
[2021-04-02] MEDS: PROMETHAZINE HCL 6.25 MG in SODIUM CHLORIDE 0.9% 50 ML IV PRN (12:12)
[2021-04-02] MEDS: ACETAMINOPHEN 325 MG TAB PO PRN ×2 (18:07→23:23)
[2021-04-02] MEDS: traZODone HCL 100 MG TAB PO SCH (21:23)
[2021-04-02] MEDS: clonazePAM 0.5 MG TAB PO SCH (21:23)
[2021-04-03] MEDS: SODIUM CHLORIDE 0.9% 1000ML 1,000 ML IV SCH (04:49)
[2021-04-03] MEDS: CIPROFLOXACIN / D5W 400 MG/200 ML BAG IV SCH ×2 (04:49→16:16)
[2021-04-03] MEDS: LEVOTHYROXINE SODIUM 75 MCG TABLET PO SCH (05:05)
[2021-04-03] MEDS: SUMAtriptan succinate 100 MG TAB PO PRN (05:05)
--- NOTE | 2021-04-03 05:49 | Electrocardiogram Report ---
Test Reason : Blood Pressure : / mmHG Vent. Rate : 080 BPM Atrial Rate : 080 BPM P-R Int : 162 ms QRS Dur : 074 ms QT Int : 376 ms P-R-T Axes : 063 -29 029 degrees QTc Int : 433 ms Normal sinus rhythm Nonspecific ST and T wave abnormality Abnormal ECG No previous ECGs available Confirmed by Miquel Rodríguez ([id number]) on 04/03/2021 5:48:58 AM Referred By: Scott Barrios Confirmed By:Miquel Rodríguez
[2021-04-03 07:00] LABS: Hematocrit (blood only) 38.7 % (37-47); Hemoglobin 13.3 g/dL (12.0-16.0); Mean Corpuscular Hemoglobin 30.8 pg (25-34); Mean Corpuscular Hgb Conc 34.4 g/dL (32-36); Mean Corpuscular Volume 89.6 fL (80-100); Mean Platelet Volume 9.5 fL (7.4-10.4); Platelet Count 173 K/uL (130-400); RDW Coefficient of Variation 13.6 % (11.5-14.5); Red Blood Count 4.32 M/uL (4.2-5.4); White Blood Count 7.07 K/uL (4.8-10.8)
[2021-04-03] MEDS: metroNIDAZOLE 500 MG/100 ML BAG IV SCH ×2 (07:33→15:59)
[2021-04-03] MEDS: DULoxetine HCL 60 MG CAP PO SCH (07:35)
[2021-04-03] MEDS: clonazePAM 0.25 MG TAB PO SCH (07:35)
[2021-04-03] MEDS: OCTREOTIDE ACETATE 100 MCG in SYRINGE 9 ML IV SCH (07:36)
[2021-04-03] MEDS: lamoTRIgine 100 MG TAB PO SCH (07:36)
[2021-04-03] MEDS: SUCRALFATE 1 GM TAB PO SCH ×2 (07:36→20:56)
[2021-04-03 07:37] LABS: Albumin Globulin Ratio 0.9 (0.9-2); Albumin Level 2.7 gm/dl (3.4-5.0); BUN Creatinine Ratio 8.1 (10-20); Bilirubin,Total 0.9 mg/dl (0.2-1); Creatinine Clr Calc Pharmacy 109.8 ml/min; Est GFR (African American) 120.1 ml/min; Est GFR (Non-African American) 103.7 ml/min; Potassium 3.2 mmol/L (3.5-5.1); Total Protein 5.7 gm/dl (6.4-8.2)
[2021-04-03] MEDS: ACETAMINOPHEN 325 MG TAB PO PRN ×2 (07:38→19:30)
[2021-04-03] MEDS ORDERED: POTASSIUM CHLORIDE 40 MEQ in SODIUM CHLORIDE 0.9% 1000ML 1,000 ML IV SCH (09:00)
[2021-04-03] MEDS ORDERED: POTASSIUM CHLORIDE / WTR 10 MEQ/100 ML PLCT IV ONE (09:00)
[2021-04-03] MEDS: POTASSIUM ACETATE/NSS 10 MEQ/105 ML BAG IV SCH ×2 (09:11→11:51)
[2021-04-03 09:12] LABS: Phosphorus 2.1 mg/dl (2.5-4.9)
--- NOTE | 2021-04-03 11:14 | Hospitalist Progress Note ---
Date of Service April 03, 2021 Assessment & Plan (1) History of biliary duct stent placement: (2) Sphincter of Oddi spasm: Plan: This is a 66-year-old female PMH hypothyroidism, insulin resistance, GERD, anxiety, depression, sphincter of Oddi dysfunction s/p ERCP x 2 in the past, who was admitted following ERCP on 04/01 with sphincterotomy requiring FCMS placement due to periampullary extravasation. Admitted to [facility] S/p ERCP on 04/01/21 with sphincterotomy requiring FCMS placement due to periampullary extravasation (Type II) Keep NPO for now with gentle IV fluids, continue IV cipro/flagyl, IV PPI, IV Octreotide, antiemetics CT abd/pelvis on 04/02/21 with pneumoperitoneum and fat stranding secondary to biliary leak Per GI, plan to repeat another CT scan with PO contrast only on Tuesday and if retroperitoneal air resolves then will start clear liquid diet Lipase downtrending. Daily CMP Notify Dr. Barrios if any change in clinical status (3) Hypokalemia: (4) Hypophosphatemia: Plan: Replaced today. Repeat labs in AM (5) Hypothyroidism: Plan: Continue levothyroxine (6) Anxiety: (7) Depression: Plan: Continue home meds (8) Insulin resistance: Plan: Managed with weekly Ozempic at home Monitor glucose Follows with GI nutrition (9) DVT prophylaxis: Plan: SCDs for now. Consider adding chemical ppx tomorrow PCP: Lalo Dispo: Admitted to med/surg. Patient seen in collaboration with Dr. Alva. Please see addendum. Admission and Anticipated Discharge Date Admission Date: April 02, 2021 Supervising Physician Co-Signing Physician Notes Patient seen and examined Reports nausea/vomiting usually after meds nancy octreotide Reports some abd discomfort Physical exam notable for mild epigastric and right abd tenderness Labs notable for improving lipase, K of 3.2, phosp 2.1 CT abd/P yesterday showed pneumoperitoneum/fat stranding due to biliary leak, physiologic pneumobilia Hemodynamically stable Replete electrolytes Continue antiemetics prn. RN can dose this prior to meds GI on board Continue IV ppi and npo Continue IVF Plan to repeat CT tomorrow to assess for improvement Agree with other plans as detailed by Samanta Reveles PA-C Subjective Patient seen and examined in 387-1. Feeling nauseated this morning following octreotide. Improved with antiemetics. Had a migraine headache this morning, improved with Imitrex. Still having abdominal discomfort with movement improved slightly from yesterday in RUQ and epigastrium. Pain free at rest. Denies any fever, chills, lightheadedness, chest pain, shortness of breath, dysuria, diarrhea or constipation. No bowel movement since arrival but passing gas. Review of Systems Review of Systems: ROS per HPI, all other systems reviewed and negative Physical Exam Physical Exam: Gen: WD/WN, NAD, lying in bed, A&Ox3 HEENT: Normocephalic, atraumatic, conjunctivae moist, sclerae anicteric, mucous membranes moist Lung: Clear to Auscultation bilaterally, no wheezes/rales/rhonchi Heart: Regular rate, regular rhythm, no murmurs, rubs, or gallops Abdomen: Soft, TTP in epigastrium, RUQ. +BS x 4 Extremities: no edema Skin: Warm, no rash Results & Data Results & Data ([facility]) Vital Signs (Past 12 Hours) Vital Signs Temp Pulse Pulse Resp BP BP Pulse Ox 04/03/21 07:25 37 C 93 H 18 113/74 93 04/02/21 23:20 37.1 C 101 H 16 102/68 93 Laboratory Results Short CBC 04/03/21 Range/Units 06:28 WBC 7.07 (4.8-10.8) K/uL Hgb 13.3 (12.0-16.0) g/dL Hct 38.7 (37-47) % Plt Count 173 (130-400) K/uL BMP 04/03/21 06:28 Sodium 141 Potassium 3.2 L Chloride 110 H Carbon Dioxide 25 BUN 4 L Creatinine 0.48 L Glucose 113 H Calcium 9.0 Liver Function 04/03/21 Range/Units 06:28 Total Bilirubin 0.9 (0.2-1) mg/dl AST 11 L (15-37) U/L ALT 10 L (12-78) U/L Alkaline Phosphatase 66 (45-117) U/L Albumin 2.7 L (3.4-5.0) gm/dl Diagnostic Findings Abdomen/Pelvis CT 04/02/21 10:00 CT abd pelvis oral and IV con CLINICAL HISTORY: s/p ERCP w/ biliary leak TECHNIQUE: Helical axial images of the abdomen and pelvis were obtained and displayed. Automated dose lowering techniques and/or adjustment according to patient size were utilized for this exam. This exam was performed with intravenous contrast. COMPARISON: None available at the time of this dictation. FINDINGS: Lower chest: Bibasilar atelectasis is seen. Liver: Left shift Gallbladder and biliary tree: Surgically absent. There is diffuse soft tissue stranding and air in the gallbladder fossa. Pneumobilia is seen. A stent is noted in the distal biliary duct. Pancreas: There is prominence of the pancreatic duct measuring up to 4 mm in diameter in the pancreatic body. Spleen: Unremarkable. Adrenals: Unremarkable. Kidneys and ureters: Unremarkable. Bladder: Unremarkable. Reproductive organs: Unremarkable. Bowel: Status post appendectomy. Lymph nodes Retroperitoneal: Unremarkable. Mesenteric: Subcentimeter lymph nodes are noted. Pelvic: Unremarkable. Peritoneum: There is pneumoperitoneum and soft tissue stranding most prominently in the right upper quadrant and mid abdomen. Vessels: Atherosclerotic calcifications are seen. Abdominal wall: Unremarkable. Bones: Degenerative changes in the visualized spine. IMPRESSION: 1. Status post cholecystectomy with placement of a biliary stent. There is pneumoperitoneum and fat stranding secondary to biliary leak. 2. Prominence of the biliary ducts with apparent atrophy of the pancreatic tail. 3. Physiologic pneumobilia. ACT 112: Negative or not required by law. Electronically signed by: Jerzy Mcdonough M.D. 04/02/2021 10:25 AM
[2021-04-03] MEDS: ONDANSETRON INJ 2 MG/ML 2 ML VIAL IV PRN ×2 (11:48→19:28)
[2021-04-03] MEDS: PANTOprazole 40 MG in SYRINGE 0 ML IV SCH (11:51)
--- NOTE | 2021-04-03 13:41 | Gastroenterology Progress Note ---
Date of Service April 03, 2021 Assessment & Plan (1) Sphincter of Oddi spasm: (2) Biliary sludge: Plan: Pt is a 66 y/o female admitted yesterday s/p ERCP with sphincterotomy requiring FCMS placement due to periampullary extravasation. Feels ok today; had some n/v w/ Octreotide, improved with Zofran. Has some mild abd discomfort, not worsening. Abd is soft. K and phosphorus low. Lipase trending down; LFTs and WBC WNL. She's afebrile. CT yesterday with no contrast extravasation; expected findings after complex ERCP; CBD stent in place, no fluid collections - Please correct K and phosphorus - Continue NPO for now - Continue IVF - Continue IV PPI - Continue IV Octreotide; try pre-medicating w/ Zofran - Also Zofran PRN - Continue IV Cipro/Flagyl - Plan is to repeat another CT scan with PO contrast tomorrow Thank you for allowing us to participate in the care of this patient. Please call with any acute changes, questions or concerns. Please see addendum below with additional recommendation from my supervising physician. Admission and Anticipated Discharge Date Admission Date: April 02, 2021 Supervising Physician Co-Signing Physician Notes I performed a history and physical examination of the patient today, including specifically on physical exam - soft abdomen. I have discussed the patient's management with the advanced practitioner. Please refer to the nurse practitioner's note for the documented findings and plan of care. She feels much better today, no significant pain. Had vomiting after Octreotide and thinks it is irritating her. Labs reviewed and remains normal. Plan: CT scan tomorrow to evaluate the retroperitoneal space. Stop Octrotide. Continue PPI. Continue Antiemetics. Continue IV ABx. If CT scan is improved will start on clear liquids. Subjective Patient seen and examined, chart reviewed. Pt had nausea/vomiting right after Octreotide given. Presently feeling improved. Has some ongoing abd discomfort, mostly with movement but can be with palpation - this is in the epigastrium. No worse than yesterday. No BM; passing small amt of flatus. No melena, hematochezia, hematemesis, fever, chills, CP, SOB. Urinating a lot w/ IVF. Review of Systems Review of Systems: All systems reviewed & are unremarkable except as noted in Subjective Physical Exam Constitutional: WD/WN, vitals as above Neck: trachea midline, no thyromegaly Respiratory: normal respiratory effort, lungs clear to auscultation Cardiovascular: RRR, no murmur, no edema Gastrointestinal (Abdomen): abd soft, nondistended, mildly tender to the epigastrium and RLQ, no rebound, guarding, BS x 4 quadrants Skin: no rashes, warm and dry Results & Data ([facility]) Vital Signs (Past 12 Hours) Vital Signs Temp Pulse Resp BP Pulse Ox 04/03/21 07:25 37 C 93 H 18 113/74 93 Laboratory Results 04/03/21 04/03/21 04/03/21 Range/Units 06:28 06:28 06:28 WBC 7.07 (4.8-10.8) K/uL RBC 4.32 (4.2-5.4) M/uL Hgb 13.3 (12.0-16.0) g/dL Hct 38.7 (37-47) % MCV 89.6 (80-100) fL MCH 30.8 (25-34) pg MCHC 34.4 (32-36) g/dL RDW Std Deviation 45.0 (36.4-46.3) fL RDW Coeff of Dyana 13.6 (11.5-14.5) % Plt Count 173 (130-400) K/uL MPV 9.5 (7.4-10.4) fL Sodium 141 (136-145) mmol/L Potassium 3.2 L (3.5-5.1) mmol/L Chloride 110 H (98-107) mmol/L Carbon Dioxide 25 (21-32) mmol/L Anion Gap 6.0 (3-11) BUN 4 L (7-18) mg/dl Creatinine 0.48 L (0.6-1.2) mg/dl Est Cr Clr Drug Dosing 109.8 ml/min Est GFR ( Amer) 120.1 ml/min Est GFR (Non-Af Amer) 103.7 ml/min BUN/Creatinine Ratio 8.1 L (10-20) Glucose 113 H (70-99) mg/dl Calcium 9.0 (8.5-10.1) mg/dl Phosphorus 2.1 L (2.5-4.9) mg/dl Magnesium 2.0 (1.8-2.4) mg/dl Total Bilirubin 0.9 (0.2-1) mg/dl AST 11 L (15-37) U/L ALT 10 L (12-78) U/L Alkaline Phosphatase 66 (45-117) U/L Total Protein 5.7 L (6.4-8.2) gm/dl Albumin 2.7 L (3.4-5.0) gm/dl Globulin 3.0 (2.5-4.0) gm/dl Albumin/Globulin Ratio 0.9 (0.9-2) Lipase 799 H (73-393) U/L
[2021-04-03] MEDS: PROMETHAZINE HCL 6.25 MG in SODIUM CHLORIDE 0.9% 50 ML IV PRN (16:15)
[2021-04-03] MEDS ORDERED: POTASSIUM PHOS 3 MMOL/1 ML INFUSION IV STA (16:39)
[2021-04-03] MEDS ORDERED: POTASSIUM PHOSPHATE 6 MMOL in 0.9 % SODIUM CHLORIDE 100 ML IV ONE (16:45)
[2021-04-03] MEDS: clonazePAM 0.5 MG TAB PO SCH (20:55)
[2021-04-03] MEDS: HEPARIN SOD 5,000 UNIT/0.5 ML VIAL SQ SCH (20:56)
[2021-04-03] MEDS: traZODone HCL 100 MG TAB PO SCH (20:56)
[2021-04-04] MEDS: metroNIDAZOLE 500 MG/100 ML BAG IV SCH ×3 (00:55→17:47)
[2021-04-04] MEDS: SODIUM CHLORIDE 0.9% 1000ML 1,000 ML IV SCH ×3 (03:06→16:37)
[2021-04-04] MEDS: CIPROFLOXACIN / D5W 400 MG/200 ML BAG IV SCH ×2 (03:15→16:37)
[2021-04-04] MEDS: LEVOTHYROXINE SODIUM 75 MCG TABLET PO SCH (05:54)
[2021-04-04 08:06] LABS: Hematocrit (blood only) 38.8 % (37-47); Hemoglobin 13.3 g/dL (12.0-16.0); Mean Corpuscular Hemoglobin 31.7 pg (25-34); Mean Corpuscular Hgb Conc 34.3 g/dL (32-36); Mean Corpuscular Volume 92.6 fL (80-100); Mean Platelet Volume 9.6 fL (7.4-10.4); Platelet Count 171 K/uL (130-400); RDW Coefficient of Variation 13.6 % (11.5-14.5); RDW Standard Deviation 46.1 fL (36.4-46.3); Red Blood Count 4.19 M/uL (4.2-5.4); White Blood Count 5.72 K/uL (4.8-10.8)
[2021-04-04 08:22] LABS: Albumin Level 2.7 gm/dl (3.4-5.0); BUN Creatinine Ratio 9.2 (10-20); Calcium 8.7 mg/dl (8.5-10.1); Creatinine Clr Calc Pharmacy 103.4 ml/min; Est GFR (African American) 117.8 ml/min; Est GFR (Non-African American) 101.6 ml/min; Potassium 3.5 mmol/L (3.5-5.1)
[2021-04-04 08:25] LABS: Albumin Globulin Ratio 0.9 (0.9-2); Bilirubin,Total 0.8 mg/dl (0.2-1); Globulin 3.1 gm/dl (2.5-4.0); Phosphorus 2.3 mg/dl (2.5-4.9); Total Protein 5.8 gm/dl (6.4-8.2)
--- NOTE | 2021-04-04 09:06 | Hospitalist Progress Note ---
Date of Service April 04, 2021 Assessment & Plan (1) History of biliary duct stent placement: (2) Sphincter of Oddi spasm: Plan: 66-year-old female PMH hypothyroidism, insulin resistance, GERD, anxiety, depression, sphincter of Oddi dysfunction s/p ERCP x 2 in the past, who was admitted following ERCP on 04/01 with sphincterotomy requiring FCMS placement due to periampullary extravasation. Admitted to [facility] S/p ERCP on 04/01/21 with sphincterotomy requiring FCMS placement due to periampullary extravasation (Type II) CT abd/pelvis on 04/02/21 with pneumoperitoneum and fat stranding secondary to biliary leak Repeat CT abd/pelvis today, no extravasation of oral contrast, stable pneumobilia, patent metallic CBD stent in good position I reviewed the findings with GI Dr Ibrahim. He reported the other findings are expected with the leak. So far, there is no extravasation of oral contrast and stent in good position, patient is ok to be started on clears and monitor. Clears started (3) Hypokalemia: (4) Hypophosphatemia: Plan: K is 3.5 today and phosp is 2.3 Will give po neutraphos (5) Hypothyroidism: Plan: Continue levothyroxine (6) Anxiety: (7) Depression: Plan: Continue home meds (8) Insulin resistance: Plan: Managed with weekly Ozempic at home Monitor glucose Follows with GI nutrition (9) DVT prophylaxis: Plan: SCDs for now. Ambulate PCP: Lalo Dispo: Admitted to med/surg. Admission and Anticipated Discharge Date Admission Date: April 02, 2021 Subjective 66-year-old female PMH hypothyroidism, insulin resistance, GERD, anxiety, depression, sphincter of Oddi dysfunction s/p ERCP x 2 in the past, who was admitted following ERCP on 04/01 with sphincterotomy requiring FCMS placement due to periampullary extravasation Patient seen and examined today Reports vomiting has resolved. Had some nausea earlier Still has some Right sided abd discomfort Passing flatus. No BM Denied any cough, chest pain, SOB, MCKENZIE Denied any dysuria, freq, urgency Denied any fevers, chills Physical Exam Constitutional: + well hydrated; no acute distress Eyes: PERRL, conjunctivae normal, anicteric sclerae ENMT: external ear and nose normal, oropharynx normal Respiratory: normal respiratory effort, lungs clear to auscultation Cardiovascular: RRR S1 S2 Gastrointestinal (Abdomen): RLQ tenderness, soft, not distended, normal bowel sounds Musculoskeletal: no cyanosis or clubbing, extremities motor strength 5/5 Neurologic: PERRL, EOMI, accommodation nl, no face palsy, no dysarthria Psychiatric: A+Ox3, euthymic affect Results & Data Results & Data ([facility]) Vital Signs (Past 12 Hours) Vital Signs Temp Pulse Pulse Resp BP Pulse Ox 04/04/21 07:36 36.8 C 72 16 146/84 H 93 04/03/21 22:49 37.2 C 97 H 18 121/78 91 Laboratory Results Abnormal lab results 04/04/21 04/04/21 Range/Units 07:25 07:25 RBC 4.19 L (4.2-5.4) M/uL Chloride 111 H (98-107) mmol/L BUN 5 L (7-18) mg/dl Creatinine 0.51 L (0.6-1.2) mg/dl BUN/Creatinine Ratio 9.2 L (10-20) Phosphorus 2.3 L (2.5-4.9) mg/dl AST 13 L (15-37) U/L Total Protein 5.8 L (6.4-8.2) gm/dl Albumin 2.7 L (3.4-5.0) gm/dl
[2021-04-04] MEDS: lamoTRIgine 100 MG TAB PO SCH (09:26)
[2021-04-04] MEDS: HEPARIN SOD 5,000 UNIT/0.5 ML VIAL SQ SCH ×2 (09:26→20:28)
[2021-04-04] MEDS: SUCRALFATE 1 GM TAB PO SCH ×2 (09:26→20:26)
[2021-04-04] MEDS: DULoxetine HCL 60 MG CAP PO SCH (09:26)
[2021-04-04] MEDS: clonazePAM 0.25 MG TAB PO SCH (09:26)
--- NOTE | 2021-04-04 09:41 | CT Scan Report ---
ABDOMEN AND PELVIS CT WITHOUT CONTRAST CT DOSE: 299.61 mGy.cm HISTORY: f/u epigastric abdominal pain, CBD stent TECHNIQUE: Multiaxial CT images of the abdomen and pelvis were performed without contrast. A dose lo wering technique was utilized adhering to the principles of ALARA. COMPARISON STUDY: Abdomen and pelvis CT 04/02/2021. FINDINGS: There are bibasilar linear densities consistent with subsegmental atelectasis. There appear s to be trace right pleural effusion. Minimal pericardial fluid is noted. The heart is normal in size . No suspicious lytic or blastic osseous lesions. Evidence for prior cholecystectomy. Pneumobilia and a metallic common bile duct stent are again noted. The common bile duct stent appears patent. Small amount of fluid/edema, fat stranding, and extraluminal gas is again noted within the right upper quad rant centered around the second portion of the duodenum and gallbladder fossa. This is similar to the prior study and may correspond to the patient's history of a biliary leak. No extravasation of oral contrast from the prior study identified. However, the constellation of findings suggests evidence fo r perforated viscus or possibly injury to the common bile duct. No loculated fluid collections on thi s noncontrast study to suggest an abscess at this time. There is mild edema and thickening at the serna creatic head which favors a mild acute pancreatitis. This is also similar to the prior study. The benson n pancreatic duct remains slightly distended at 4 mm. The unenhanced spleen and adrenal glands are un remarkable. Mild right perinephric fat stranding/edema with trace perinephric gas remains unchanged. No renal or ureteral stones. No hydronephrosis. No retroperitoneal lymphadenopathy. Normal caliber ab dominal aorta. The bladder, uterus, bilateral adnexa are within normal limits. There is residual cont rast within the colon from the recent CT examination. No dilated loops of bowel to suggest an obstruc tion. Questionable mild thickening of the hepatic flexure of the colon may be reactive to the adjacen t inflammatory change within the right upper quadrant. The appendix is not identified and likely surg ically absent. IMPRESSION: 1. Overall, no significant change compared to the prior study. 2. Small amount of fluid/edema, fat stranding, and extraluminal gas is again noted within the right u pper quadrant centered around the second portion of the duodenum and gallbladder fossa. This is simil ar to the prior study and may correspond to the patient's history of a biliary leak. No extravasation of oral contrast from the prior study identified. However, the constellation of findings suggests ev idence for perforated viscus or possibly injury to the common bile duct. No loculated fluid collectio ns on this noncontrast study to suggest an abscess at this time. 3. There is mild edema and thickening at the pancreatic head which favors a mild acute pancreatitis. This is also similar to the prior study. 4. Stable pneumobilia and patent metallic common bile duct stent which appears in good position. 5. Additional findings as described above. ACT 112: Negative or not required by law. Electronically signed by: Zach Yanes M.D. 04/04/2021 9:39 AM
[2021-04-04] MEDS: PANTOprazole 40 MG in SYRINGE 0 ML IV SCH (12:06)
[2021-04-04] MEDS ORDERED: POT PHOSPHATE MONOBASIC W/ SOD TAB PO ONE (17:11)
[2021-04-04] MEDS: clonazePAM 0.5 MG TAB PO SCH (20:27)
[2021-04-04] MEDS: traZODone HCL 100 MG TAB PO SCH (20:27)
[2021-04-05] MEDS: metroNIDAZOLE 500 MG/100 ML BAG IV SCH ×4 (00:18→23:14)
[2021-04-05] MEDS: SODIUM CHLORIDE 0.9% 1000ML 1,000 ML IV SCH (04:25)
[2021-04-05] MEDS: CIPROFLOXACIN / D5W 400 MG/200 ML BAG IV SCH ×2 (04:25→16:35)
[2021-04-05] MEDS: LEVOTHYROXINE SODIUM 75 MCG TABLET PO SCH (05:48)
[2021-04-05 06:27] LABS: Hematocrit (blood only) 36.2 % (37-47); Hemoglobin 12.3 g/dL (12.0-16.0); Mean Corpuscular Hemoglobin 31.1 pg (25-34); Mean Corpuscular Volume 91.4 fL (80-100); Mean Platelet Volume 9.8 fL (7.4-10.4); Platelet Count 192 K/uL (130-400); RDW Coefficient of Variation 13.4 % (11.5-14.5); RDW Standard Deviation 44.9 fL (36.4-46.3); Red Blood Count 3.96 M/uL (4.2-5.4); White Blood Count 4.85 K/uL (4.8-10.8)
[2021-04-05 07:01] LABS: BUN Creatinine Ratio 9.1 (10-20); Calcium 8.4 mg/dl (8.5-10.1); Creatinine Clr Calc Pharmacy 122.6 ml/min; Est GFR (African American) 124.6 ml/min; Est GFR (Non-African American) 107.5 ml/min; Magnesium 1.8 mg/dl (1.8-2.4); Potassium 3.2 mmol/L (3.5-5.1)
[2021-04-05 07:07] LABS: Phosphorus 3.1 mg/dl (2.5-4.9)
[2021-04-05] MEDS ORDERED: POTASSIUM CHLORIDE CRTAB 20 MEQ TABCR PO STA (07:40)
[2021-04-05] MEDS: clonazePAM 0.25 MG TAB PO SCH (08:37)
[2021-04-05] MEDS: HEPARIN SOD 5,000 UNIT/0.5 ML VIAL SQ SCH ×2 (08:37→21:09)
[2021-04-05] MEDS: DULoxetine HCL 60 MG CAP PO SCH (08:37)
[2021-04-05] MEDS: lamoTRIgine 100 MG TAB PO SCH (08:38)
[2021-04-05] MEDS: SUCRALFATE 1 GM TAB PO SCH ×2 (08:38→21:09)
--- NOTE | 2021-04-05 11:47 | Hospitalist Progress Note ---
Date of Service April 05, 2021 Assessment & Plan (1) History of biliary duct stent placement: (2) Sphincter of Oddi spasm: Plan: 66-year-old female PMH hypothyroidism, insulin resistance, GERD, anxiety, depression, sphincter of Oddi dysfunction s/p ERCP x 2 in the past, who was admitted following ERCP on 04/01 with sphincterotomy requiring FCMS placement due to periampullary extravasation. Admitted to [facility] S/p ERCP on 04/01/21 with sphincterotomy requiring FCMS placement due to periampullary extravasation (Type II) CT abd/pelvis on 04/02/21 with pneumoperitoneum and fat stranding secondary to biliary leak Repeat CT abd/pelvis 04/04/21, no extravasation of oral contrast, stable pneumobilia, patent metallic CBD stent in good position I reviewed the findings with GI Dr Ibrahim. He reported the other findings are expected with the leak. So far, there is no extravasation of oral contrast and stent in good position, patient is ok to be started on clears and monitor. Patient tolerating clears well Discussed with GI. Will continue clears today, plan to do 2 days of full liquid from tomorrow before regular Plan to dc in AM Stop IVF (3) Hypokalemia: (4) Hypophosphatemia: Plan: K is 3.2 today Replete potassium and monitor (5) Hypothyroidism: Plan: Continue levothyroxine (6) Anxiety: (7) Depression: Plan: Continue home meds (8) Insulin resistance: Plan: Managed with weekly Ozempic at home Monitor glucose Follows with GI nutrition (9) DVT prophylaxis: Plan: SCDs for now. Ambulate PCP: Lalo Admission and Anticipated Discharge Date Admission Date: April 02, 2021 Subjective 66-year-old female PMH hypothyroidism, insulin resistance, GERD, anxiety, depression, sphincter of Oddi dysfunction s/p ERCP x 2 in the past, who was admitted following ERCP on 04/01 with sphincterotomy requiring FCMS placement due to periampullary extravasation Patient seen and examined today Has been tolerating clears well Reports right sided abd discomfort is improved, now intermittent Had BM today Denied any cough, chest pain, SOB, MCKENZIE Denied any dysuria, freq, urgency Denied any fevers, chills Physical Exam Constitutional: + well hydrated; no acute distress Eyes: PERRL, conjunctivae normal, anicteric sclerae ENMT: external ear and nose normal, oropharynx normal Respiratory: normal respiratory effort, lungs clear to auscultation Cardiovascular: RRR, no murmur, no edema Gastrointestinal (Abdomen): normal bowel sounds, soft, nontender, no hepatosplenomegaly Musculoskeletal: no cyanosis or clubbing, extremities motor strength 5/5 Neurologic: PERRL, EOMI, accommodation nl, no face palsy, no dysarthria Psychiatric: A+Ox3, euthymic affect Results & Data Results & Data ([facility]) Vital Signs (Past 12 Hours) Vital Signs Temp Pulse Resp BP Pulse Ox 04/05/21 07:47 36.9 C 68 16 134/78 93 Laboratory Results Abnormal lab results 04/05/21 04/05/21 Range/Units 05:29 05:29 RBC 3.96 L (4.2-5.4) M/uL Hct 36.2 L (37-47) % Potassium 3.2 L (3.5-5.1) mmol/L Chloride 112 H (98-107) mmol/L BUN 4 L (7-18) mg/dl Creatinine 0.43 L (0.6-1.2) mg/dl BUN/Creatinine Ratio 9.1 L (10-20) Glucose 102 H (70-99) mg/dl Calcium 8.4 L (8.5-10.1) mg/dl
[2021-04-05] MEDS: PANTOprazole 40 MG in SYRINGE 0 ML IV SCH (12:03)
[2021-04-05] MEDS: ACETAMINOPHEN 325 MG TAB PO PRN (14:35)
[2021-04-05] MEDS: clonazePAM 0.5 MG TAB PO SCH (21:09)
[2021-04-05] MEDS: traZODone HCL 100 MG TAB PO SCH (21:09)
[2021-04-06] MEDS: LEVOTHYROXINE SODIUM 75 MCG TABLET PO SCH (05:22)
[2021-04-06] MEDS: CIPROFLOXACIN / D5W 400 MG/200 ML BAG IV SCH (05:22)
[2021-04-06 06:36] LABS: BUN Creatinine Ratio 5.3 (10-20); Creatinine Clr Calc Pharmacy 105.4 ml/min; Est GFR (African American) 118.5 ml/min; Est GFR (Non-African American) 102.3 ml/min; Magnesium 1.9 mg/dl (1.8-2.4); Potassium 3.5 mmol/L (3.5-5.1)
[2021-04-06 06:37] LABS: Phosphorus 3.1 mg/dl (2.5-4.9)
[2021-04-06] MEDS: SUCRALFATE 1 GM TAB PO SCH (08:42)
[2021-04-06] MEDS: metroNIDAZOLE 500 MG/100 ML BAG IV SCH (08:42)
[2021-04-06] MEDS: clonazePAM 0.25 MG TAB PO SCH (08:42)
[2021-04-06] MEDS: DULoxetine HCL 60 MG CAP PO SCH (08:42)
[2021-04-06] MEDS: lamoTRIgine 100 MG TAB PO SCH (08:42)
[2021-04-06] MEDS: HEPARIN SOD 5,000 UNIT/0.5 ML VIAL SQ SCH (08:53)
--- NOTE | 2021-04-06 09:08 | Gastroenterology Progress Note ---
Date of Service April 06, 2021 Assessment & Plan (1) Sphincter of Oddi spasm: (2) Biliary sludge: Plan: 66 y/o female admitted s/p ERCP with sphincterotomy requiring FCMS placement due to periampullary extravasation. Feeling well, tolerating PO intake. - No GI contraindication to discharge - Full liquids for 48 hours - Then soft diet for 48 hours - Gastroparesis diet as tolerated starting Tuesday - OP GES - OP stent removal - Yearly MRI Thank you for allowing us to participate in the care of this patient. Please call with any acute changes, questions or concerns. Please see addendum below with additional recommendation from my supervising physician. Admission and Anticipated Discharge Date Admission Date: April 02, 2021 Supervising Physician Co-Signing Physician Notes I performed a history and physical examination of the patient today, including specifically on physical exam - soft abdomen. I have discussed the patient's management with the advanced practitioner. Please refer to the nurse practitioner's note for the documented findings and plan of care. Did well over the weekend, WBC remains normal and no fever. Repeat CT scan showed no fluid collection or extravasation of previously ingested oral contrast. Pneumo-retroperitoneum improved. Tolerated clear liquid diet. Recommend: Complete 10 days of ABx, PO upon discharge. Full liquid diet for 2 days then soft for 2 days. Small frequent meals for gastroparesis. GES as OP. Repeat ERCP in 6 weeks to remove the stent. She has pancreas atrophy, divisum and her mother had pancreas cancer hence would benefit from annual MRI to screen for pancreas cancer. If diarrhea recurs as OP will consider a trial of Creon. Recall GI if needed. Subjective Feeling well. Tolerating clears. No abd pain. No nausea/vomiting. Diarrhea resolved. Review of Systems Review of Systems: All systems reviewed & are unremarkable except as noted in HPI & below Results & Data ([facility]) Vital Signs (Past 12 Hours) Vital Signs Temp Pulse Resp BP Pulse Ox 04/06/21 08:09 36.7 C 74 18 122/78 93 04/05/21 22:56 36.8 C 77 14 106/67 94 Laboratory Results 04/06/21 Range/Units 05:53 Sodium 141 (136-145) mmol/L Potassium 3.5 (3.5-5.1) mmol/L Chloride 109 H (98-107) mmol/L Carbon Dioxide 28 (21-32) mmol/L Anion Gap 4.0 (3-11) BUN 3 L (7-18) mg/dl Creatinine 0.50 L (0.6-1.2) mg/dl Est Cr Clr Drug Dosing 105.4 ml/min Est GFR ( Amer) 118.5 ml/min Est GFR (Non-Af Amer) 102.3 ml/min BUN/Creatinine Ratio 5.3 L (10-20) Glucose 107 H (70-99) mg/dl Calcium 9.0 (8.5-10.1) mg/dl Phosphorus 3.1 (2.5-4.9) mg/dl Magnesium 1.9 (1.8-2.4) mg/dl
--- NOTE | 2021-04-06 10:21 | Discharge Summary ---
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 Currently patient reports mild nausea, otherwise feeling well. Denies pain. Reports ongoing GI issues for the past few months (nausea, poor appetite, epigastric discomfort, diarrhea). No fevers or chills. Denies chest pain or shortness of breath. No lightheadedness, dizziness, diaphoresis, syncopal events. She denies urinary symptoms. In the ED, labs are unremarkable with exception of lipase 1200. Patient is hemodynamically stable. Patient received IV Cipro, IV Flagyl, IVF per the discretion of GI. Admission Exam Per Admitting Provider Constitutional: WD/WN, vitals as above Eyes: PERRL, conjunctivae normal, anicteric sclerae ENMT: external ear and nose normal, oropharynx normal Respiratory: normal respiratory effort, lungs clear to auscultation Cardiovascular: Rate/Rhythm: regular rate and regular rhythm Vessels: normal peripheral pulses Extremities: no edema Gastrointestinal (Abdomen): Inspection/Auscultation: normal bowel sounds Percussion/Palpation: + abdomen tender (mild epigastric with deep palpation) and abdomen soft; no hepatosplenomegaly Musculoskeletal: no cyanosis or clubbing, extremities motor strength 5/5 Skin: no rashes, warm and dry Neurologic: PERRL, EOMI, accommodation nl, no face palsy, no dysarthria Psychiatric: A+Ox3, euthymic affect Principal Diagnosis status post sphincterotomy requiring stent placement biliary leak Low Potassium Low Phosphorus Discharge Exam Gen: WD/WN, NAD, A&O x3 HEENT: Normocephalic, atraumatic, conjunctivae moist, sclerae anicteric, mucous membranes moist. Lung: Clear to Auscultation bilaterally, no wheezes/rales/rhonchi Heart: Regular rate, regular rhythm, no murmurs, rubs, or gallops Abdomen: Soft, NT, ND +BS x 4 Extremities: No edema Skin: Warm, no rash, negative turgor. Discharge Data Allergies Allergy/AdvReac Type Severity Reaction Status Date / Time amoxicillin Allergy Unknown Unverified 04/01/21 14:23 azithromycin Allergy Unknown Unverified 04/01/21 14:23 Penicillins Allergy Unknown Unverified 04/01/21 14:23 Consultations Gastroenterology Progress note, day of discharge 1) Sphincter of Oddi spasm: (2) Biliary sludge: Plan: 66 y/o female admitted s/p ERCP with sphincterotomy requiring FCMS placement due to periampullary extravasation. Feeling well, tolerating PO intake. - No GI contraindication to discharge - Full liquids for 48 hours - Then soft diet for 48 hours - Gastroparesis diet as tolerated starting Tuesday - OP GES - OP stent removal - Yearly MRI Thank you for allowing us to participate in the care of this patient. Please call with any acute changes, questions or concerns. Please see addendum below with additional recommendation from my supervising physician. Gastroenterology Consultation 1) Sphincter of Oddi spasm: s/p ERCP with sphincterotomy requiring FCMS placement due to periampullary extravasation (Type II). Currently doing well with no symptoms, Vitals and labs normal. Recommend: Clinical observation. NPO for now. IV Hydration. IV PPI. IV Octreotide once daily to decrease gastric output. IV Cipro/Flagyl. Plan for CT scan abdomen with IV/PO contrast tomorrow. Call me anytime including after hours regarding the patient's management or any change in her clinical status. (2) Biliary sludge: (3) Biliary pain: Ordered Studies Abdomen/Pelvis CT 04/02/21 10:00 CT abd pelvis oral and IV con CLINICAL HISTORY: s/p ERCP w/ biliary leak TECHNIQUE: Helical axial images of the abdomen and pelvis were obtained and displayed. Automated dose lowering techniques and/or adjustment according to patient size were utilized for this exam. This exam was performed with intravenous contrast. COMPARISON: None available at the time of this dictation. FINDINGS: Lower chest: Bibasilar atelectasis is seen. Liver: Left shift Gallbladder and biliary tree: Surgically absent. There is diffuse soft tissue stranding and air in the gallbladder fossa. Pneumobilia is seen. A stent is noted in the distal biliary duct. Pancreas: There is prominence of the pancreatic duct measuring up to 4 mm in diameter in the pancreatic body. Spleen: Unremarkable. Adrenals: Unremarkable. Kidneys and ureters: Unremarkable. Bladder: Unremarkable. Reproductive organs: Unremarkable. Bowel: Status post appendectomy. Lymph nodes Retroperitoneal: Unremarkable. Mesenteric: Subcentimeter lymph nodes are noted. Pelvic: Unremarkable. Peritoneum: There is pneumoperitoneum and soft tissue stranding most prominently in the right upper quadrant and mid abdomen. Vessels: Atherosclerotic calcifications are seen. Abdominal wall: Unremarkable. Bones: Degenerative changes in the visualized spine. IMPRESSION: 1. Status post cholecystectomy with placement of a biliary stent. There is pneumoperitoneum and fat stranding secondary to biliary leak. 2. Prominence of the biliary ducts with apparent atrophy of the pancreatic tail. 3. Physiologic pneumobilia. ACT 112: Negative or not required by law. Electronically signed by: Jerzy Mcdonough M.D. 04/02/2021 10:25 AM Abdomen/Pelvis CT 04/04/21 08:[address] WITHOUT CONTRAST CT DOSE: 299.61 mGy.cm HISTORY: f/u epigastric abdominal pain, CBD stent TECHNIQUE: Multiaxial CT images of the abdomen and pelvis were performed without contrast. A dose lowering technique was utilized adhering to the principles of ALARA. COMPARISON STUDY: Abdomen and pelvis CT 04/02/2021. FINDINGS: There are bibasilar linear densities consistent with subsegmental atelectasis. There appears to be trace right pleural effusion. Minimal pericardial fluid is noted. The heart is normal in size. No suspicious lytic or blastic osseous lesions. Evidence for prior cholecystectomy. Pneumobilia and a metallic common bile duct stent are again noted. The common bile duct stent appears patent. Small amount of fluid/edema, fat stranding, and extraluminal gas is again noted within the right upper quadrant centered around the second portion of the duodenum and gallbladder fossa. This is similar to the prior study and may correspond to the patient's history of a biliary leak. No extravasation of oral contrast from the prior study identified. However, the constellation of findings suggests evidence for perforated viscus or possibly injury to the common bile duct. No loculated fluid collections on this noncontrast study to suggest an abscess at this time. There is mild edema and thickening at the pancreatic head which favors a mild acute pancreatitis. This is also similar to the prior study. The main pancreatic duct remains slightly distended at 4 mm. The unenhanced spleen and adrenal glands are unremarkable. Mild right perinephric fat stranding/edema with trace perinephric gas remains unchanged. No renal or ureteral stones. No hydronephrosis. No retroperitoneal lymphadenopathy. Normal caliber abdominal aorta. The bladder, uterus, bilateral adnexa are within normal limits. There is residual contrast within the colon from the recent CT examination. No dilated loops of bowel to suggest an obstruction. Questionable mild thickening of the hepatic flexure of the colon may be reactive to the adjacent inflammatory change within the right upper quadrant. The appendix is not identified and likely surgically absent. IMPRESSION: 1. Overall, no significant change compared to the prior study. 2. Small amount of fluid/edema, fat stranding, and extraluminal gas is again noted within the right upper quadrant centered around the second portion of the duodenum and gallbladder fossa. This is similar to the prior study and may correspond to the patient's history of a biliary leak. No extravasation of oral contrast from the prior study identified. However, the constellation of findings suggests evidence for perforated viscus or possibly injury to the common bile duct. No loculated fluid collections on this noncontrast study to suggest an abscess at this time. 3. There is mild edema and thickening at the pancreatic head which favors a mild acute pancreatitis. This is also similar to the prior study. 4. Stable pneumobilia and patent metallic common bile duct stent which appears in good position. 5. Additional findings as described above. ACT 112: Negative or not required by law. Electronically signed by: Zach Yanes M.D. 04/04/2021 9:39 AM Hospital Course (1) History of biliary duct stent placement: (2) Sphincter of Oddi spasm: This is 66-year-old female PMH hypothyroidism, insulin resistance, GERD, anxiety, depression, sphincter of Oddi dysfunction s/p ERCP x 2 in the past, who was admitted following ERCP on 04/01 with sphincterotomy requiring FCMS placement due to periampullary extravasation. CT abdomen pelvis on 04/02 was concerning for pneumoperitoneum and fat stranding secondary to biliary leak. It also revealed Mild edema and thickening of the pancreatic head favoring a mild acute pancreatitis. She did have a mild elevation of lipase in 1242. Per GI findings were expected secondary to leak. There was no extravasation of oral contrast and stent was in good position. She was made n.p.o., started on IV PPI, IV octreotide and IV Cipro Flagyl. She did have mild GI symptoms with nausea and abdominal pain. This resolved and her diet was advanced to clear liquids. On day of discharge she was tolerating a full liquid diet. Per GI she is to continue with liquid diet for 48 hours, then may advance to a soft diet for 48 hours and then continue to a gastroparesis diet. Per GI she is having gastric emptying study as outpatient as well as stent removal. This will be arranged by gastroenterology. Further recommend a yearly MRI. During hospitalization she did have mild hypokalemia and hypophosphatemia and these were replaced. On day of discharge patient was in good spirits, tolerating full liquid diet, moving bowels without abdominal pain. Her vital signs are stable. She will continue and complete a 10-day course of antibiotics, Cipro and Flagyl. (3) Hypokalemia: (4) Hypophosphatemia: (5) Hypothyroidism: (6) Anxiety: (7) Depression: (8) Insulin resistance: (9) DVT prophylaxis: Total Time Total Time Spent Total Time Spent (In Minutes): 35 minutes Total Time Includes: Examination of the Patient, Discharge Planning, Medication Reconciliation, Communication With Other Providers and Other Discharge Plan Discharge Items Patient Disposition: Home - Self-Care Reason For Visit: BILIARY LEAK Discharge Diagnosis: status post sphincterotomy requiring stent placement biliary leak Low Potassium Low Phosphorus Activity: Per Instructions section Non-emergency contact: Primary Care Provider and Clinical Rn Manager Call non-emergency contact if: you have any medication questions and your symptoms worsen Follow-up/Referrals: Shonda May DO [Primary Care Provider] - 04/13/21 11:00 am (Hospital Follow up with Dr. Awad) Diet: Other - See Diet Comment Addtl Attending Provider Instructions: MEDICATION CHANGES: Cipro 400mg by mouth twice daily until gone - Antibiotic Flagyl 500mg by mouth three times a day until gone - Antibiotic Recommend increasing probiotic intake while on antibiotics SUMMARY OF TEST RESULTS: You were admitted to hospital after undergoing elective ERCP for Sphincter of Oddi dysfunction with fully covered metal stent placement for observation due to concern for biliary leak. You were started on IV antibiotics and Dr. Barrios followed along during your hospital stay. You had repeat CT scan of abdomen which was unchanged from prior. Your diet was slowly advanced and on day of discharge you were pain free. PENDING TEST RESULTS: None RECOMMENDATIONS FOR FOLLOW-UP: You are to remain on a full liquid diet 04/06/21 & 04/07/21, details on full liquid diet in this packet. On 04/08/21 you may advance to a soft diet and begin a Gastroparesis diet on 04/10/21. Follow up with GI as scheduled. You have been scheduled for a hospital follow up at [facility] with Dr. Awad on 04/13/21 @ 11:00. Please complete antibiotic course in its entirety. OTHER INSTRUCTIONS: Seek medical attention if you have: * temperature above 101 * chest pain or trouble breathing * abdominal pain, nausea, vomiting * diarrhea, dark stools or bloody stools * any unanswered questions or concerns Call 911 if symptoms are severe. Please take good care of yourself. It has been a pleasure taking care of you. Please take care of yourself. If you have any questions regarding your recent hospitalization please contact [facility] and request [facility] @ [phone]. Krystal Acuna PA-C Pending Studies at Discharge: No Stand-Alone Forms: My [facility], Smoking Cessation Medications and DC Order Prescriptions: New ciprofloxacin HCl 500 mg tablet 500 mg PO Q12H Qty: 10 RF: 0 metronidazole 500 mg tablet 500 mg PO Q8H Qty: 16 RF: 0 Continued sumatriptan succinate 100 mg Tablet 100 mg PO DAILY PRN (Reason: Migraine Headache) RF: 0 sucralfate 1 gram tablet 1 g PO BID RF: 0 clonazepam 0.5 mg tablet 0.5 mg PO HS RF: 0 lamotrigine 25 mg tablet 100 mg PO DAILY RF: 0 levothyroxine [Synthroid] 75 mcg Tablet 75 mcg PO DAILY RF: 0 trazodone 100 mg Tablet 100 mg PO HS RF: 0 pantoprazole 40 mg tablet,delayed release (DR/EC) 40 mg PO BID RF: 0 clindamycin phosphate 1 % Lotion 1 applic TOPICAL BID RF: 0 Ozempic 0.25 mg or 0.5 mg(2 mg/1.5 mL) pen injector 0.25 mg SUBCUT WK RF: 0 duloxetine 60 mg Capsule, Delayed Rel Sprinkle 120 mg PO DAILY RF: 0 clonazepam 0.5 mg tablet 0.25 mg PO DAILY RF: 0 Discharge Orders: Discharge Order (Routine); Ordered 04/06/21 Ordered By: Krystal Haro/Other Patient Handouts: Full Liquid Diet Dc, ED Soft Diet Admission Data Admit Date/Time: 04/02/21 15:02 Attending Provider: Georgiana Alva I. Admit Provider: Georgiana Alva I. Primary Care Provider: Shonda May Other Providers: Sunny Sams ; Georgiana Alva I. ; Krystal Acuna Other Interventions: Discharge Summary Assessment (RN) Last Done: 04/06/21 11:35 Supervising Physician Co-Signing Physician Notes Agree with findings and plans as detailed by Krystal Acuna PA-C
[2021-04-06] MEDS: PANTOprazole 40 MG in SYRINGE 0 ML IV SCH (11:43)
== END 2021-04-06 13:14 | disposition home or self-care (01) | DRG 446 ==
LOC: ED 12:29 → 3N 12:29

== ENCOUNTER 2021-04-08 12:57 | Inpatient (IN) ==
[2021-04-08] MEDS ORDERED: ONDANSETRON INJ 2 MG/ML 2 ML VIAL IV STA ×2 (13:07→13:18)
[2021-04-08] MEDS ORDERED: SODIUM CHLORIDE 0.9% 1000ML 1,000 ML IV STA (13:07)
--- NOTE | 2021-04-08 13:34 | Emergency Department Note ---
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 Patient states she had a brief episode of some sharp right upper quadrant pain earlier but that has resolved. States she was recently admitted after an ERCP here at the end of last week and over the weekend. States since discharge she is not been able to eat or drink and feels very weak. Denies fever or chest pain or shortness of breath. Patient has had ongoing GI symptoms for quite some time per her report. Patient states Phenergan tablets given to her by GI since yesterday have not helped with her nausea symptoms and she has not been able to keep down significant out of food or liquids. REVIEW OF SYSTEMS: A total of 10 review of systems was obtained and negative except as stated above in the HPI. PAST MEDICAL HISTORY: As noted above MEDICATIONS: Reviewed home medications SOCIAL HISTORY: Lives at home with PHYSICAL EXAM: GENERAL: alert and oriented in no acute distress on stretcher fatigued in appearance Head: normocephalic and atraumatic EYES: No injection, discharge or icterus. NECK: Trachea midline. LUNGS: Airway patent. No retractions. Breath sounds clear with good air entry bilaterally. HEART: Regular rate and rhythm. No chest wall tenderness ABDOMEN: Soft and non-tender, without guarding or rebound. SKIN: Acyanotic, warm, dry, without rashes EXTREMITIES: Without swelling, tenderness or deformity NEUROLOGICAL: No focal deficits. No aphasia. No facial droop or slurred speech. EK bpm normal sinus rhythm. No PVC or PAC. QTc 455. Left axis. No ST segment elevation noted. CONTINUOUS CARDIAC MONITORING: was ordered and showed a heart rate of 70s-90s bpm in normal sinus rhythm Patient's laboratory studies and imaging reviewed. Differential includes Appendicitis, infections, diverticulitis, UTI, obstruction, mesenteric ischemia, aortic pathology, inflammatory bowel disease, renal colic, PUD, pancreatitis, biliary pathology, hernia, volvulus, constipation, as well as other pathologies. IMPRESSION/MEDICAL DECISION MAKING: Reviewed recent medical record. Contacted by the GI team and recommended a Noncon CT abdomen pelvis and basic labs. Patient nonperitoneal without significant dull pain now but some earlier. Question possible issue with the stent whether possible obstruction or migration. Patient does not appear significantly jaundiced. Somewhat tachycardic and hypotensive here likely related decreased intake but cultures were ordered. No fevers reported. Given some Zofran initially to help with her nausea. No significant anemia or leukocytosis. CT scan of the abdomen pelvis per radiology appears to show improvement without obvious stent migration or occlusion. The inflammatory changes around the CBD, pancreatic head, duodenum were noted but these are improved compared to previous. No significant lipase elevation, bilirubin elevation, or significant transaminitis noted. No white blood cell count elevation. Blood work is actually fairly reassuring with only a mildly elevated lactate and mild hypokalemia. Patient has some improvement of her nausea with his Zofran. GI is aware the patient is a followed closely previously and work with to try to improve her symptoms. Given her inability to really tolerate oral intake and significant nausea and vomiting with weakness related to this discussed with the hospitalist further observation. DIAGNOSIS: Intractable nausea and vomiting, transient right upper quadrant pain, hypokalemi a DISPOSITION: Hospitalist will evaluate Patient was agreeable with this plan. Past Med/Surg History Medical History Anxiety Depression Hypothyroidism Insulin resistance PUD (peptic ulcer disease) Sphincter of Oddi spasm Surgical History H/O dilation and curettage History of appendectomy History of biliary duct stent placement History of cholecystectomy Status post breast reduction Family History Mother Pancreatic cancer Social History Smoking Status: Never smoker Second Hand Exposure: No; Hx Alcohol Use: No Hx Substance Use: No Preferred Language: Chinese Communication Ability: Effective Plug Stitcher Required: No Beliefs That Will Affect Care: None Current Living Situation: Spouse Feels Safe at Home: Yes Assistive Devices: None Allergies Allergies Allergy/AdvReac Type Severity Reaction Status Date / Time amoxicillin Allergy Unknown Unverified 04/08/21 14:37 azithromycin Allergy Unknown Unverified 04/08/21 14:37 Penicillins Allergy Unknown Unverified 04/08/21 14:37 Home Meds Home Medications Medication Instructions Recorded Confirmed clindamycin phosphate 1 % lotion 1 applic TOPICAL BID 04/01/21 04/08/21 clonazepam 0.5 mg tablet 0.5 mg PO HS 04/01/21 04/08/21 duloxetine 60 mg capsule,delayed 120 mg PO QAM 04/01/21 04/08/21 release sprinkle lamotrigine 25 mg tablet 100 mg PO QAM 04/01/21 04/08/21 levothyroxine 75 mcg tablet 75 mcg PO DAILY 04/01/21 04/08/21 (Synthroid) pantoprazole 40 mg tablet,delayed 40 mg PO BID 04/01/21 04/08/21 release semaglutide (Ozempic) 0.25 mg SUBCUT WK 04/01/21 04/08/21 sucralfate 1 gram tablet 1 g PO BID 04/01/21 04/08/21 sumatriptan succinate 100 mg tablet 100 mg PO DAILY PRN 04/01/21 04/08/21 trazodone 100 mg tablet 100 mg PO HS 04/01/21 04/08/21 ciprofloxacin HCl 500 mg tablet 500 mg PO BID 04/08/21 04/08/21 metronidazole 500 mg tablet 500 mg PO Q8H 04/08/21 04/08/21 promethazine 25 mg tablet 25 mg PO Q8H PRN 04/08/21 04/08/21 Results & Data (ED) Vital Signs Vital Signs - 24 hr 04/08/21 13:03 04/08/21 13:58 04/08/21 15:00 Temperature 36.4 C L Temperature Source Temporal Artery Scan Pulse Rate 121 H Pulse Rate [Left Finger] 82 75 Pulse Rhythm [Left Finger] Regular Regular Pulse Strength [Left Finger] Normal Normal Respiratory Rate 20 20 16 Respiratory Effort / Characteristics Non-Labored Spontaneous Non-Labored Spontaneous Non-Labored Respiratory Depth Normal Normal Normal Respiratory Pattern Regular Regular Regular Blood Pressure 95/62 L Blood Pressure [Left Arm] 126/80 127/79 Blood Pressure Mean 73 Blood Pressure Mean [Left Arm] 95 95 Blood Pressure Position [Left Arm] Lying Pulse Oximetry 96 97 97 Oxygen Delivery Method Room Air Room Air Room Air Sepsis Recent Fever Within 48 Hours No Sepsis New/Unexplained Change in Mental Status No Sepsis Action Taken by Nursing No Action Required Laboratory Data Result diagrams: 04/08/21 13:45 04/08/21 13:45 Lab Results 04/08/21 04/08/21 04/08/21 Range/Units 13:45 13:45 13:45 WBC (4.8-10.8) K/uL RBC (4.2-5.4) M/uL Hgb (12.0-16.0) g/dL Hct (37-47) % MCV (80-100) fL MCH (25-34) pg MCHC (32-36) g/dL RDW Std Deviation (36.4-46.3) fL RDW Coeff of Dyana (11.5-14.5) % Plt Count (130-400) K/uL MPV (7.4-10.4) fL Immature Gran % (Auto) % Neut % (Auto) % Lymph % (Auto) % Lander % (Auto) % Eos % (Auto) % Baso % (Auto) % Neut # (Auto) (1.4-6.5) K/uL Lymph # (Auto) (1.2-3.4) K/uL Lander # (Auto) (0.11-0.59) K/uL Eos # (Auto) (0-0.5) K/uL Baso # (Auto) (0-0.2) K/uL Immature Gran # (Auto) (0.00-0.02) K/uL PT 10.3 (9.0-12.0) Seconds INR 1.0 (0.9-1.1) Sodium 139 (136-145) mmol/L Potassium 3.3 L (3.5-5.1) mmol/L Chloride 103 (98-107) mmol/L Carbon Dioxide 29 (21-32) mmol/L Anion Gap 7.0 (3-11) BUN 9 (7-18) mg/dl Creatinine 0.88 (0.6-1.2) mg/dl Est Cr Clr Drug Dosing 57.8 ml/min Est GFR ( Amer) 80.5 ml/min Est GFR (Non-Af Amer) 69.4 ml/min BUN/Creatinine Ratio 10.3 (10-20) Glucose 82 (70-99) mg/dl Lactate (0.4-2.0) mmol/L Calcium 9.9 (8.5-10.1) mg/dl Phosphorus 3.0 (2.5-4.9) mg/dl Magnesium 2.0 (1.8-2.4) mg/dl Total Bilirubin 0.7 (0.2-1) mg/dl AST 66 H (15-37) U/L ALT 36 (12-78) U/L Alkaline Phosphatase 74 (45-117) U/L Troponin I < 0.015 (0-0.045) ng/ml Total Protein 7.3 (6.4-8.2) gm/dl Albumin 3.4 (3.4-5.0) gm/dl Globulin 3.9 (2.5-4.0) gm/dl Albumin/Globulin Ratio 0.9 (0.9-2) Lipase 103 (73-393) U/L Procalcitonin 0.16 (0-0.5) ng/ml COVID-19 Eval Order SARS-CoV-2 (PCR) (Negative) 04/08/21 04/08/21 04/08/21 Range/Units 13:45 13:50 14:20 WBC 5.52 (4.8-10.8) K/uL RBC 4.84 (4.2-5.4) M/uL Hgb 15.0 (12.0-16.0) g/dL Hct 43.4 (37-47) % MCV 89.7 (80-100) fL MCH 31.0 (25-34) pg MCHC 34.6 (32-36) g/dL RDW Std Deviation 44.0 (36.4-46.3) fL RDW Coeff of Dyana 13.4 (11.5-14.5) % Plt Count 268 (130-400) K/uL MPV 9.2 (7.4-10.4) fL Immature Gran % (Auto) 0.9 % Neut % (Auto) 61.7 % Lymph % (Auto) 22.3 % Lander % (Auto) 13.6 % Eos % (Auto) 1.1 % Baso % (Auto) 0.4 % Neut # (Auto) 3.41 (1.4-6.5) K/uL Lymph # (Auto) 1.23 (1.2-3.4) K/uL Lander # (Auto) 0.75 H (0.11-0.59) K/uL Eos # (Auto) 0.06 (0-0.5) K/uL Baso # (Auto) 0.02 (0-0.2) K/uL Immature Gran # (Auto) 0.05 H (0.00-0.02) K/uL PT (9.0-12.0) Seconds INR (0.9-1.1) Sodium (136-145) mmol/L Potassium (3.5-5.1) mmol/L Chloride (98-107) mmol/L Carbon Dioxide (21-32) mmol/L Anion Gap (3-11) BUN (7-18) mg/dl Creatinine (0.6-1.2) mg/dl Est Cr Clr Drug Dosing ml/min Est GFR ( Amer) ml/min Est GFR (Non-Af Amer) ml/min BUN/Creatinine Ratio (10-20) Glucose (70-99) mg/dl Lactate 2.5 H* (0.4-2.0) mmol/L Calcium (8.5-10.1) mg/dl Phosphorus (2.5-4.9) mg/dl Magnesium (1.8-2.4) mg/dl Total Bilirubin (0.2-1) mg/dl AST (15-37) U/L ALT (12-78) U/L Alkaline Phosphatase (45-117) U/L Troponin I (0-0.045) ng/ml Total Protein (6.4-8.2) gm/dl Albumin (3.4-5.0) gm/dl Globulin (2.5-4.0) gm/dl Albumin/Globulin Ratio (0.9-2) Lipase (73-393) U/L Procalcitonin (0-0.5) ng/ml COVID-19 Eval Order Covid19 at [facility] SARS-CoV-2 (PCR) (Negative) 04/08/21 Range/Units 14:20 WBC (4.8-10.8) K/uL RBC (4.2-5.4) M/uL Hgb (12.0-16.0) g/dL Hct (37-47) % MCV (80-100) fL MCH (25-34) pg MCHC (32-36) g/dL RDW Std Deviation (36.4-46.3) fL RDW Coeff of Dyana (11.5-14.5) % Plt Count (130-400) K/uL MPV (7.4-10.4) fL Immature Gran % (Auto) % Neut % (Auto) % Lymph % (Auto) % Lander % (Auto) % Eos % (Auto) % Baso % (Auto) % Neut # (Auto) (1.4-6.5) K/uL Lymph # (Auto) (1.2-3.4) K/uL Lander # (Auto) (0.11-0.59) K/uL Eos # (Auto) (0-0.5) K/uL Baso # (Auto) (0-0.2) K/uL Immature Gran # (Auto) (0.00-0.02) K/uL PT (9.0-12.0) Seconds INR (0.9-1.1) Sodium (136-145) mmol/L Potassium (3.5-5.1) mmol/L Chloride (98-107) mmol/L Carbon Dioxide (21-32) mmol/L Anion Gap (3-11) BUN (7-18) mg/dl Creatinine (0.6-1.2) mg/dl Est Cr Clr Drug Dosing ml/min Est GFR ( Amer) ml/min Est GFR (Non-Af Amer) ml/min BUN/Creatinine Ratio (10-20) Glucose (70-99) mg/dl Lactate (0.4-2.0) mmol/L Calcium (8.5-10.1) mg/dl Phosphorus (2.5-4.9) mg/dl Magnesium (1.8-2.4) mg/dl Total Bilirubin (0.2-1) mg/dl AST (15-37) U/L ALT (12-78) U/L Alkaline Phosphatase (45-117) U/L Troponin I (0-0.045) ng/ml Total Protein (6.4-8.2) gm/dl Albumin (3.4-5.0) gm/dl Globulin (2.5-4.0) gm/dl Albumin/Globulin Ratio (0.9-2) Lipase (73-393) U/L Procalcitonin (0-0.5) ng/ml COVID-19 Eval Order SARS-CoV-2 (PCR) NEGATIVE (Negative) Administered Medications Discontinued Medications Sodium Chloride (Nss 1000ml) 1,000 mls @ 999 mls/hr IV .Q1H1M STA Stop: 04/08/21 14:07 Last Infusion: 04/08/21 15:29 Dose: 0 mls/hr Documented by: [id number] Admin: 04/08/21 14:08 Dose: 999 mls/hr Documented by: [id number] Ondansetron HCl (Ondansetron Inj 2 Mg/Ml 2 Ml Vial) 4 mg IV NOW STA Stop: 04/08/21 13:08 Last Admin: 04/08/21 14:08 Dose: 4 mg Documented by: [id number] Imaging Data Radiologist's Impression: Abdomen/Pelvis CT 04/08/21 13:18 CT SCAN OF THE ABDOMEN AND PELVIS WITHOUT IV CONTRAST CLINICAL HISTORY: Nausea and vomiting. Generalized abdominal pain. Recent biliary stent placement. COMPARISON STUDY: Abdominal CT dated 04/04/2021 and 04/02/2021. TECHNIQUE: CT scan of the abdomen and pelvis is performed from the lung bases to the proximal femora. Images are reviewed in the axial, sagittal, and coronal planes. IV contrast was not administered for this examination. Note that the examination is suboptimal without IV contrast. A dose lowering technique was utilized adhering to the principles of ALARA. CT DOSE: 512.68 mGycm FINDINGS: Lung bases: The heart is normal in size and without pericardial effusion. There is no airspace consolidation or pleural effusion. Atelectasis is seen at the lung bases. A 3 mm left lower lobe pulmonary nodule is seen on image #31 and a 4 mm right middle lobe nodule is seen on image #4. Liver: The unenhanced liver is normal in size, contour, and attenuation. A common bile duct stent is unchanged in position as compared to prior studies. This extends from the mid common bile duct into the duodenum. Pneumobilia suggests patency of the stent. There is no intrahepatic biliary ductal dilatation. Gallbladder: Surgically absent noting clips in the gallbladder fossa. Spleen: Normal in size and attenuation. Pancreas: Mild infiltration and fluid seen around the common bile duct, proximal duodenum, and pancreatic head has improved from previous. The unenhanced pancreas is otherwise grossly unremarkable. Adrenal glands: Unremarkable. Kidneys: The unenhanced kidneys are normal in size and without hydronephrosis. There are no renal calculi identified. There is no evidence of contour deforming renal mass lesion. Abdominal vasculature: The abdominal aorta is normal in course and caliber. Bowel: There is no bowel obstruction. Residual enteric contrast is seen in the colon. The appendix is not identified and reported surgically absent. Peritoneum: There are scattered foci of residual intraperitoneal free air. This has significantly improved from previous. There is a small fat-containing umbi lical hernia. Lymphadenopathy: None. Pelvic viscera: The bladder and uterus are normal as visualized. A 2 cm simple cystic lesion is noted in the left ovary on image #316. Skeletal structures: The skeletal structures are osteopenic. There is mild to moderate lumbosacral spondylosis. No lytic or blastic lesions are seen. IMPRESSION: 1. The gallbladder is surgically absent and the common bile duct stent is unchanged in position. Pneumobilia suggests patency of the stent. 2. There are tiny foci of intraperitoneal free air in the right upper quadrant. This has significantly improved from previous. 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 3. There is mild infiltration and fluid seen around the common bile duct, the pancreatic head, and the duodenum. This has significantly improved as compared to 04/04/2021, and is likely related to the history of bile leak. Mild acute pancreatitis is not excluded. Correlate with serum lipase levels. 4. No organized/drainable fluid collection is seen in the right upper quadrant on this unenhanced examination. 5. There is improved aeration at the lung bases as compared to previous. A small right pleural effusion has resolved. 6. Additional findings as above. ACT 112: Negative or not required by law. Electronically signed by: Jesús Villeda M.D. 04/08/2021 2:05 PM Discharge Plan Visit Data Chief Complaint: Abdominal Pain Stated Complaint: ABDOMINAL PAIN, NAUSEA ED Provider: Ryan Cuevas Discharge Problem: Nausea & vomiting, Hypokalemia, RUQ abdominal pain Patient Disposition: Being Evaluated by Hospitalist Forms Stand Alone Forms: My [facility] Prescriptions Prescriptions: No Action promethazine 25 mg tablet 25 mg PO Q8H PRN (Reason: Nausea) RF: 0 metronidazole 500 mg tablet 500 mg PO Q8H RF: 0 ciprofloxacin HCl 500 mg tablet 500 mg PO BID RF: 0 sumatriptan succinate 100 mg Tablet 100 mg PO DAILY PRN (Reason: Migraine Headache) RF: 0 sucralfate 1 gram tablet 1 g PO BID RF: 0 clonazepam 0.5 mg tablet 0.5 mg PO HS RF: 0 lamotrigine 25 mg tablet 100 mg PO QAM RF: 0 levothyroxine [Synthroid] 75 mcg Tablet 75 mcg PO DAILY RF: 0 trazodone 100 mg Tablet 100 mg PO HS RF: 0 pantoprazole 40 mg tablet,delayed release (DR/EC) 40 mg PO BID RF: 0 clindamycin phosphate 1 % Lotion 1 applic TOPICAL BID RF: 0 Ozempic 0.25 mg or 0.5 mg(2 mg/1.5 mL) pen injector 0.25 mg SUBCUT WK RF: 0 duloxetine 60 mg Capsule, Delayed Rel Sprinkle 120 mg PO QAM RF: 0 Referrals Referrals: Shonda May, [Primary Care Provider] -
[2021-04-08 14:04] LABS: Basophils # (auto) 0.02 K/uL (0-0.2); Basophils % (auto) 0.4 %; Eosinophils # (auto) 0.06 K/uL (0-0.5); Eosinophils % (auto) 1.1 %; Hematocrit (blood only) 43.4 % (37-47); Immature Granulocytes # (auto) 0.05 K/uL (0.00-0.02); Immature Granulocytes % (auto) 0.9 %; Lymphocytes # (auto) 1.23 K/uL (1.2-3.4); Lymphocytes % (auto) 22.3 %; Mean Corpuscular Hgb Conc 34.6 g/dL (32-36); Mean Corpuscular Volume 89.7 fL (80-100); Mean Platelet Volume 9.2 fL (7.4-10.4); Monocytes # (auto) 0.75 K/uL (0.11-0.59); Monocytes % (auto) 13.6 %; Neutrophils # (auto) 3.41 K/uL (1.4-6.5); Neutrophils % (auto) 61.7 %; Platelet Count 268 K/uL (130-400); RDW Coefficient of Variation 13.4 % (11.5-14.5); Red Blood Count 4.84 M/uL (4.2-5.4); White Blood Count 5.52 K/uL (4.8-10.8)
--- NOTE | 2021-04-08 14:07 | CT Scan Report ---
CT SCAN OF THE ABDOMEN AND PELVIS WITHOUT IV CONTRAST CLINICAL HISTORY: Nausea and vomiting. Generalized abdominal pain. Recent biliary stent placement. COMPARISON STUDY: Abdominal CT dated 04/04/2021 and 04/02/2021. TECHNIQUE: CT scan of the abdomen and pelvis is performed from the lung bases to the proximal femora. Images are reviewed in the axial, sagittal, and coronal planes. IV contrast was not administered for this examination. Note that the examination is suboptimal without IV contrast. A dose lowering techn ique was utilized adhering to the principles of ALARA. CT DOSE: 512.68 mGycm FINDINGS: Lung bases: The heart is normal in size and without pericardial effusion. There is no airspace consol idation or pleural effusion. Atelectasis is seen at the lung bases. A 3 mm left lower lobe pulmonary nodule is seen on image #31 and a 4 mm right middle lobe nodule is seen on image #4. Liver: The unenhanced liver is normal in size, contour, and attenuation. A common bile duct stent is unchanged in position as compared to prior studies. This extends from the mid common bile duct into t he duodenum. Pneumobilia suggests patency of the stent. There is no intrahepatic biliary ductal dilat ation. Gallbladder: Surgically absent noting clips in the gallbladder fossa. Spleen: Normal in size and attenuation. Pancreas: Mild infiltration and fluid seen around the common bile duct, proximal duodenum, and pancre atic head has improved from previous. The unenhanced pancreas is otherwise grossly unremarkable. Adrenal glands: Unremarkable. Kidneys: The unenhanced kidneys are normal in size and without hydronephrosis. There are no renal del culi identified. There is no evidence of contour deforming renal mass lesion. Abdominal vasculature: The abdominal aorta is normal in course and caliber. Bowel: There is no bowel obstruction. Residual enteric contrast is seen in the colon. The appendix is not identified and reported surgically absent. Peritoneum: There are scattered foci of residual intraperitoneal free air. This has significantly imp roved from previous. There is a small fat-containing umbilical hernia. Lymphadenopathy: None. Pelvic viscera: The bladder and uterus are normal as visualized. A 2 cm simple cystic lesion is noted in the left ovary on image #316. Skeletal structures: The skeletal structures are osteopenic. There is mild to moderate lumbosacral sp ondylosis. No lytic or blastic lesions are seen. IMPRESSION: 1. The gallbladder is surgically absent and the common bile duct stent is unchanged in position. Pneu mobilia suggests patency of the stent. 2. There are tiny foci of intraperitoneal free air in the right upper quadrant. This has significantl y improved from previous. 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 3. There is mild infiltration and fluid seen around the common bile duct, the pancreatic head, and th e duodenum. This has significantly improved as compared to 04/04/2021, and is likely related to the h istory of bile leak. Mild acute pancreatitis is not excluded. Correlate with serum lipase levels. 4. No organized/drainable fluid collection is seen in the right upper quadrant on this unenhanced exa mination. 5. There is improved aeration at the lung bases as compared to previous. A small right pleural effusi on has resolved. 6. Additional findings as above. ACT 112: Negative or not required by law. Electronically signed by: Jesús Villeda M.D. 04/08/2021 2:05 PM
[2021-04-08 14:15] LABS: Prothrombin Time 10.3 Seconds (9.0-12.0)
[2021-04-08 14:32] LABS: Alanine Aminotransferase 36 U/L (12-78); Albumin Level 3.4 gm/dl (3.4-5.0); Aspartate Aminotransferase 66 U/L (15-37); BUN Creatinine Ratio 10.3 (10-20); Blood Urea Nitrogen 9 mg/dl (7-18); Calcium 9.9 mg/dl (8.5-10.1); Carbon Dioxide 29 mmol/L (21-32); Chloride 103 mmol/L (98-107); Creatinine Clr Calc Pharmacy 57.8 ml/min; Est GFR (African American) 80.5 ml/min; Est GFR (Non-African American) 69.4 ml/min; Glucose 82 mg/dl (70-99); Lipase 103 U/L (73-393); Potassium 3.3 mmol/L (3.5-5.1); Sodium 139 mmol/L (136-145)
--- NOTE | 2021-04-08 14:51 | Electrocardiogram Report ---
Test Reason : Blood Pressure : / mmHG Vent. Rate : 083 BPM Atrial Rate : 083 BPM P-R Int : 152 ms QRS Dur : 070 ms QT Int : 388 ms P-R-T Axes : 056 -42 012 degrees QTc Int : 455 ms Poor data quality, interpretation may be adversely affected Normal sinus rhythm Left axis deviation Nonspecific ST abnormality Poor R wave progression, consider anterior ND vs. lead placement vs. LVH Abnormal ECG When compared with ECG of 01-APR-2021 16:23, Nonspecific T wave abnormality has replaced inverted T waves in Anterior leads Confirmed by Dung Vega ([id number]) on 04/08/2021 2:51:42 PM Referred By: REFERRED SELF Confirmed By:Beto Vega
[2021-04-08 14:59] LABS: Albumin Globulin Ratio 0.9 (0.9-2); Alkaline Phosphatase 74 U/L (45-117); Bilirubin,Total 0.7 mg/dl (0.2-1); Globulin 3.9 gm/dl (2.5-4.0); Total Protein 7.3 gm/dl (6.4-8.2); Troponin I < 0.015 ng/ml (0-0.045)
--- NOTE | 2021-04-08 15:45 | History & Physical Report ---
Date of Service April 08, 2021 Assessment & Plan (1) Nausea & vomiting: (2) History of biliary duct stent placement: Plan: Patient is a 66-year-old female with PMH hypothyroidism, insulin resistance, GERD, anxiety, depression, h/o sphincter of Oddi dysfunction s/p ERCP in the past who presented to ER with C/O nausea and vomiting. Recent hospitalization at [facility] 04/01/2021-04/06/2021 S/P ERCP with sphincterotomy requiring FCMS placement due to periampullary extravasation. Now with intractable nausea and vomiting. Today in ER patient afebrile, initial pulse 121 down to 82, initial BP 95/62 up to 126/80 after 1 L NSS. Patient feeling improved after been given Zofran in ER. Denies abdominal pain No leukocytosis, Normal lipase CT abdomen pelvis: Common bile duct stent is unchanged position fluids, removal of biliary suggest patency of stent, tiny foci of intraperitoneal free air in the RUQ has significantly improved from previous yes, mild infiltration with fluid seen around the CBD, pancreatic head and duodenum that has significantly improved compared to 04/04/2021 CT. Observation in [facility] IVF Antiemetics prn GI has seen patient in ER and recommends observation overnight and plans to give IV Emend and start clear liquid diet. Plan to start Questran once daily and Carafate slurry BID tomorrow. *Dr Merino's patient* CBC, CMP in am (3) Hypokalemia: Plan: K: 3.3 Replace and monitor (4) Elevated lactic acid level: Plan: Lactate: 2.5 Repeat lactate is normalized at 1.2 after 1L NSS (5) Hypothyroidism: Plan: Continue levothyroxine (6) Anxiety: (7) Depression: Plan: Continue duloxetine, lamotrigine (8) Insulin resistance: Plan: On Ozempic Hold Ozempic currently DVT Prophylaxis SCDs Full Code as per discussion with pt Follows with Dr May for routine care Pt was seen and care coordinated with Dr Nazario. See addendum History of Present Illness Chief Complaint: Nausea, vomiting Primary Care Provider: Shonda May, DO Patient is a 66-year-old female with PMH hypothyroidism, insulin resistance, GERD, anxiety, depression, h/o sphincter of Oddi dysfunction s/p ERCP in the [facility] who presented to ER with C/O nausea and vomiting. Patient with recent History hospitalization at [facility] 04/01/2021-04/06/2021 S/P ERCP with sphincterotomy requiring FCMS placement due to periampullary extravasation (Type II). She initially was kept n.p.o. and given IVF, IV Cipro and Flagyl, IV PPI antibiotic and antiemetics. Initial CT abdomen/pelvis on 04/02/2021 with pneumoperitoneum and fat stranding secondary to biliary leak. Repeat CT abdomen pelvis on 04/04/2021 showed no extravasation of oral contrast, stable pneumobilia, patent metallic CBD stent in good position. GI had felt findings were expected with no leak and there was no extravasation of oral contrast and stent in good position. Patient was transitioned to and tolerated oral liquid diet prior to discharge. Per GI recommendation patient was to continue with liquid diet for 48 hours and advance to soft diet for 48 hours and continue gastroparesis diet. She was discharged on Cipro and Flagyl to complete 10-day course. Since being home reports attempted to drink a milkshake and had nausea, vomiting. She then resumed liquid diet. She was given prescription for Phenergan by GI however reports did not help. Patient states continues with nausea and vomiting. She reports during vomiting episode had sharp pain to right upper abdomen. Denies any further abdominal pain. Today had loose BM. Denies fever/chills, diaphoresis, hematemesis, hematochezia, melena THEODORE, dizziness, syncope, vision changes, neck pain, CP, SOB, orthopnea, palpitations, cough, sore throat, choking, otalgia, rhinorrhea, paresthesias, weakness, extremity weakness, extremity edema, rashes, urinary symptoms. Today in ER patient afebrile, initial pulse 121 down to 82, initial BP 95/62 up to 126/80 after 1 L NSS. Patient feeling improved after been given Zofran. CT abdomen pelvis: Common bile duct stent is unchanged position fluids, removal of biliary suggest patency of stent, tiny foci of intraperitoneal free air in the RUQ has significantly improved from previous yes, mild infiltration with fluid seen around the CBD, pancreatic head and duodenum that has significantly improved compared to 04/04/2021 CT. GI has seen patient in ER and recommends observation overnight and plans to give IV Emend and clear liquid diet. Allergies Allergy/AdvReac Type Severity Reaction Status Date / Time amoxicillin Allergy Unknown Unverified 04/08/21 14:37 azithromycin Allergy Unknown Unverified 04/08/21 14:37 Penicillins Allergy Unknown Unverified 04/08/21 14:37 Home Medications Medication Instructions Recorded Confirmed Type clindamycin phosphate 1 % lotion 1 applic TOPICAL BID 04/01/21 04/08/21 History clonazepam 0.5 mg tablet 0.5 mg PO HS 04/01/21 04/08/21 History duloxetine 60 mg capsule,delayed 120 mg PO QAM 04/01/21 04/08/21 History release sprinkle lamotrigine 25 mg tablet 100 mg PO QAM 04/01/21 04/08/21 History levothyroxine 75 mcg tablet 75 mcg PO DAILY 04/01/21 04/08/21 History (Synthroid) pantoprazole 40 mg tablet,delayed 40 mg PO BID 04/01/21 04/08/21 History release semaglutide (Ozempic) 0.25 mg SUBCUT WK 04/01/21 04/08/21 History sucralfate 1 gram tablet 1 g PO BID 04/01/21 04/08/21 History sumatriptan succinate 100 mg tablet 100 mg PO DAILY PRN 04/01/21 04/08/21 History trazodone 100 mg tablet 100 mg PO HS 04/01/21 04/08/21 History ciprofloxacin HCl 500 mg tablet 500 mg PO BID 04/08/21 04/08/21 History metronidazole 500 mg tablet 500 mg PO Q8H 04/08/21 04/08/21 History promethazine 25 mg tablet 25 mg PO Q8H PRN 04/08/21 04/08/21 History Past Med/Surg History Medical History Anxiety Depression Hypothyroidism Insulin resistance PUD (peptic ulcer disease) Sphincter of Oddi spasm Surgical History H/O dilation and curettage History of appendectomy History of biliary duct stent placement History of cholecystectomy Status post breast reduction Family History Mother Pancreatic cancer Social History Smoking Status: Never smoker Second Hand Exposure: No; Hx Alcohol Use: No Hx Substance Use: No Preferred Language: Telugu Communication Ability: Effective Golf Teacher Required: No Beliefs That Will Affect Care: None Current Living Situation: Spouse Other Information That Helps Us Care for You: No Feels Safe at Home: Yes Safety Concerns: Feels Safe At This Time Assistive Devices: None Review of Systems Review of Systems: All systems reviewed & are unremarkable except as noted in HPI & below Physical Exam Physical Exam: General: no distress, WDWN Head: normocephalic, atraumatic Eyes: conjunctiva non-injected, anicteric ENT: normal inspection external ears, nose, mucous membranes mildly dry Neck: supple, trachea midline Lungs: clear, no respiratory distress, no wheezing/rhonchi/rales CV: RRR, no murmur, no pretibial edema Abd: normal BS, soft, non-tender to palpation Ext: no cyanosis, no calf tenderness Neuro: A&O x 3, no focal deficits noted, normal affect Skin: warm, dry Results & Data Results & Data ([facility]) Vital Signs (Past 12 Hours) Vital Signs Temp Pulse Pulse Resp BP BP Pulse Ox 04/08/21 13:58 82 20 126/80 97 04/08/21 13:03 36.4 C L 121 H 20 95/62 L 96 Laboratory Results Short CBC 04/08/21 04/08/21 Range/Units 13:45 13:45 WBC 5.52 (4.8-10.8) K/uL Hgb 15.0 (12.0-16.0) g/dL Hct 43.4 (37-47) % Plt Count 268 (130-400) K/uL Potassium 3.3 L (3.5-5.1) mmol/L BMP 04/08/21 13:45 Sodium 139 Potassium 3.3 L Chloride 103 Carbon Dioxide 29 BUN 9 Creatinine 0.88 Glucose 82 Calcium 9.9 Cardiac Enzymes 04/08/21 Range/Units 13:45 Troponin I < 0.015 (0-0.045) ng/ml Liver Function 04/08/21 Range/Units 13:45 Total Bilirubin 0.7 (0.2-1) mg/dl AST 66 H (15-37) U/L ALT 36 (12-78) U/L Alkaline Phosphatase 74 (45-117) U/L Albumin 3.4 (3.4-5.0) gm/dl Diagnostic Findings Abdomen/Pelvis CT 04/08/21 13:18 CT SCAN OF THE ABDOMEN AND PELVIS WITHOUT IV CONTRAST CLINICAL HISTORY: Nausea and vomiting. Generalized abdominal pain. Recent biliary stent placement. COMPARISON STUDY: Abdominal CT dated 04/04/2021 and 04/02/2021. TECHNIQUE: CT scan of the abdomen and pelvis is performed from the lung bases to the proximal femora. Images are reviewed in the axial, sagittal, and coronal planes. IV contrast was not administered for this examination. Note that the examination is suboptimal without IV contrast. A dose lowering technique was utilized adhering to the principles of ALARA. CT DOSE: 512.68 mGycm FINDINGS: Lung bases: The heart is normal in size and without pericardial effusion. There is no airspace consolidation or pleural effusion. Atelectasis is seen at the lung bases. A 3 mm left lower lobe pulmonary nodule is seen on image #31 and a 4 mm right middle lobe nodule is seen on image #4. Liver: The unenhanced liver is normal in size, contour, and attenuation. A common bile duct stent is unchanged in position as compared to prior studies. This extends from the mid common bile duct into the duodenum. Pneumobilia suggests patency of the stent. There is no intrahepatic biliary ductal dilatation. Gallbladder: Surgically absent noting clips in the gallbladder fossa. Spleen: Normal in size and attenuation. Pancreas: Mild infiltration and fluid seen around the common bile duct, proximal duodenum, and pancreatic head has improved from previous. The unenhanced pancreas is otherwise grossly unremarkable. Adrenal glands: Unremarkable. Kidneys: The unenhanced kidneys are normal in size and without hydronephrosis. There are no renal calculi identified. There is no evidence of contour deforming renal mass lesion. Abdominal vasculature: The abdominal aorta is normal in course and caliber. Bowel: There is no bowel obstruction. Residual enteric contrast is seen in the colon. The appendix is not identified and reported surgically absent. Peritoneum: There are scattered foci of residual intraperitoneal free air. This has significantly improved from previous. There is a small fat-containing umbilical hernia. Lymphadenopathy: None. Pelvic viscera: The bladder and uterus are normal as visualized. A 2 cm simple cystic lesion is noted in the left ovary on image #316. Skeletal structures: The skeletal structures are osteopenic. There is mild to moderate lumbosacral spondylosis. No lytic or blastic lesions are seen. IMPRESSION: 1. The gallbladder is surgically absent and the common bile duct stent is unchanged in position. Pneumobilia suggests patency of the stent. 2. There are tiny foci of intraperitoneal free air in the right upper quadrant. This has significantly improved from previous. 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 3. There is mild infiltration and fluid seen around the common bile duct, the pancreatic head, and the duodenum. This has significantly improved as compared to 04/04/2021, and is likely related to the history of bile leak. Mild acute pancreatitis is not excluded. Correlate with serum lipase levels. 4. No organized/drainable fluid collection is seen in the right upper quadrant on this unenhanced examination. 5. There is improved aeration at the lung bases as compared to previous. A small right pleural effusion has resolved. 6. Additional findings as above. ACT 112: Negative or not required by law. Electronically signed by: Jesús Villeda M.D. 04/08/2021 2:05 PM Code Status & VTE Plan VTE Prophylaxis Plan VTE Prophylaxis will be ordered: Yes Supervising Physician Co-Signing Physician Notes Patient is a 66-year-old female with history of hypothyroidism, GERD sphincter of Oddi dysfunction and other medical problems presents with history of persistent nausea, vomiting inability to maintain oral intake. She also admits to have transient right upper quadrant abdominal pain which currently resolved. Denies any diarrhea, fever, chills, chest pain, shortness of breath. Please review HPI for complete details of presentation. CT abdomen showed significant improvement when compared to prior. Noted hypokalemia, lactic acidosis on labs. Lactate levels normalized after IV fluids. On exam patient is moderately built and nourished, no apparent distress, normocephalic atraumatic, lungs are clear to auscultation, S1-S2, no murmur, abdomen soft, nontender, normal bowel sounds, alert, awake, oriented, grossly no focal deficits. Patient is admitted for management of nausea, vomiting, sphincter of Oddi spasm. Plan to give Emend. Agree with holding Ozempic. Clear liquid diet for now. Appreciate GI input. Continue PPI. Plan to be started on Carafate, Questran. I personally reviewed the record. Patient is interviewed and examined at bedside. Patient's care is coordinated with Ada Salas PA-C. Please refer to the documentation above for details of patient's presentation and for discussion of other issues.
--- NOTE | 2021-04-08 16:10 | Gastrointestinal Consultation ---
Date of Consultation April 08, 2021 Assessment & Plan (1) Sphincter of Oddi spasm: 66-year-old female with PMH hypothyroidism, insulin resistance, GERD, anxiety, depression, h/o sphincter of Oddi dysfunction s/p ERCPw/ sphincterotomy requiring FCMS admitted w/ pain, nausea/vomiting for ob servations. Labs stable, imaging improving IV emend x 1 Clear liquids Antiemetics PRN Questran once daily Carafate slurry BID Pantoprazole BID Hold ozempic OP GES Supervising Physician Co-Signing Physician Notes I performed a history and physical examination of the patient today, including specifically on physical exam - soft abdomen. I have discussed the patient's management with the advanced practitioner. Please refer to the nurse practitioner's note for the documented findings and plan of care. Reviewed her CT scan with radiologist and it significantly improved. Labs are within normal. No signs of pancreatitis or biliary obstruction. Her symptoms now are likely related to her suspected Gastroparesis. Recommend: Clear liquid diet for now. 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 Hold Ozempic for now. Increase PPI to PO BID PRN Antiemetics. Plan for GES as OP next week. History of Present Illness Reason for Consultation: nausea, vomiting Requesting Physician: Ada Salas Attending Physician: Ada Salas History of Present Illness 66-year-old female with PMH hypothyroidism, insulin resistance, GERD, anxiety, depression, h/o sphincter of Oddi dysfunction s/p ERCPw/ sphincterotomy requiring FCMS presenting with abd pain, nausea w/ vomiting after advancing diet as OP to milkshake. In the ED, CBC stable, LFTs okay, liapse ok and repeat CT with improvement. CTAP:The gallbladder is surgically absent and the common bile duct stent is unchanged in position. Pneumobilia suggests patency of the stent.There are tiny foci of intraperitoneal free air in the right upper quadrant. This has significantly improved from previous. 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 There is mild infiltration and fluid seen around the common bile duct, the pancreatic head, and the duodenum. This has significantly improved as compared to 04/04/2021, and is likely related to the history of bile leak. Mild acute pancreatitis is not excluded. Correlate with serum lipase levels. No organized/drainable fluid collection is seen in the right upper quadrant on this unenhanced examination. There is improved aeration at the lung bases as compared to previous. A small right pleural effusion has resolved. Allergies Allergy/AdvReac Type Severity Reaction Status Date / Time amoxicillin Allergy Unknown Unverified 04/08/21 14:37 azithromycin Allergy Unknown Unverified 04/08/21 14:37 Penicillins Allergy Unknown Unverified 04/08/21 14:37 Home Medications Medication Instructions Recorded Confirmed Type clindamycin phosphate 1 % lotion 1 applic TOPICAL BID 04/01/21 04/08/21 History clonazepam 0.5 mg tablet 0.5 mg PO HS 04/01/21 04/08/21 History duloxetine 60 mg capsule,delayed 120 mg PO QAM 04/01/21 04/08/21 History release sprinkle lamotrigine 25 mg tablet 100 mg PO QAM 04/01/21 04/08/21 History levothyroxine 75 mcg tablet 75 mcg PO DAILY 04/01/21 04/08/21 History (Synthroid) pantoprazole 40 mg tablet,delayed 40 mg PO BID 04/01/21 04/08/21 History release semaglutide (Ozempic) 0.25 mg SUBCUT WK 04/01/21 04/08/21 History sucralfate 1 gram tablet 1 g PO BID 04/01/21 04/08/21 History sumatriptan succinate 100 mg tablet 100 mg PO DAILY PRN 04/01/21 04/08/21 History trazodone 100 mg tablet 100 mg PO HS 04/01/21 04/08/21 History ciprofloxacin HCl 500 mg tablet 500 mg PO BID 04/08/21 04/08/21 History metronidazole 500 mg tablet 500 mg PO Q8H 04/08/21 04/08/21 History promethazine 25 mg tablet 25 mg PO Q8H PRN 04/08/21 04/08/21 History Patient History Medical History Anxiety Depression Hypothyroidism Insulin resistance PUD (peptic ulcer disease) Sphincter of Oddi spasm Surgical History H/O dilation and curettage History of appendectomy History of biliary duct stent placement History of cholecystectomy Status post breast reduction Family History Mother Pancreatic cancer Social History Smoking Status: Never smoker Second Hand Exposure: No; Hx Alcohol Use: No Hx Substance Use: No Preferred Language: Yemeni Communication Ability: Effective Torpedo Worker Required: No Beliefs That Will Affect Care: None Current Living Situation: Spouse Feels Safe at Home: Yes Assistive Devices: None Review of Systems Review of Systems: All systems reviewed & are unremarkable except as noted in HPI & below Physical Exam Constitutional: WD/WN, vitals as above Neck: trachea midline, no thyromegaly Respiratory: normal respiratory effort, lungs clear to auscultation Cardiovascular: Rate/Rhythm: regular rate Gastrointestinal (Abdomen): normal bowel sounds, soft, nontender, no hepatosplenomegaly Skin: no rashes, warm and dry Results & Data ([facility]) Vital Signs (Past 12 Hours) Vital Signs Temp Pulse Pulse Resp BP BP Pulse Ox 04/08/21 15:00 75 16 127/79 97 04/08/21 13:58 82 20 126/80 97 04/08/21 13:03 36.4 C L 121 H 20 95/62 L 96 Laboratory Results 04/08/21 04/08/21 04/08/21 Range/Units 14:20 14:20 13:50 WBC (4.8-10.8) K/uL RBC (4.2-5.4) M/uL Hgb (12.0-16.0) g/dL Hct (37-47) % MCV (80-100) fL MCH (25-34) pg MCHC (32-36) g/dL RDW Std Deviation (36.4-46.3) fL RDW Coeff of Dyana (11.5-14.5) % Plt Count (130-400) K/uL MPV (7.4-10.4) fL Immature Gran % (Auto) % Neut % (Auto) % Lymph % (Auto) % [place] % (Auto) % Eos % (Auto) % Baso % (Auto) % Neut # (Auto) (1.4-6.5) K/uL Lymph # (Auto) (1.2-3.4) K/uL [place] # (Auto) (0.11-0.59) K/uL Eos # (Auto) (0-0.5) K/uL Baso # (Auto) (0-0.2) K/uL Immature Gran # (Auto) (0.00-0.02) K/uL PT (9.0-12.0) Seconds INR (0.9-1.1) Sodium (136-145) mmol/L Potassium (3.5-5.1) mmol/L Chloride (98-107) mmol/L Carbon Dioxide (21-32) mmol/L Anion Gap (3-11) BUN (7-18) mg/dl Creatinine (0.6-1.2) mg/dl Est Cr Clr Drug Dosing ml/min Est GFR ( Amer) ml/min Est GFR (Non-Af Amer) ml/min BUN/Creatinine Ratio (10-20) Glucose (70-99) mg/dl Lactate 2.5 H* (0.4-2.0) mmol/L Calcium (8.5-10.1) mg/dl Phosphorus (2.5-4.9) mg/dl Magnesium (1.8-2.4) mg/dl Total Bilirubin (0.2-1) mg/dl AST (15-37) U/L ALT (12-78) U/L Alkaline Phosphatase (45-117) U/L Troponin I (0-0.045) ng/ml Total Protein (6.4-8.2) gm/dl Albumin (3.4-5.0) gm/dl Globulin (2.5-4.0) gm/dl Albumin/Globulin Ratio (0.9-2) Lipase (73-393) U/L Procalcitonin (0-0.5) ng/ml COVID-19 Eval Order Covid19 at [facility] SARS-CoV-2 (PCR) NEGATIVE (Negative) 04/08/21 04/08/21 04/08/21 Range/Units 13:45 13:45 13:45 WBC 5.52 (4.8-10.8) K/uL RBC 4.84 (4.2-5.4) M/uL Hgb 15.0 (12.0-16.0) g/dL Hct 43.4 (37-47) % MCV 89.7 (80-100) fL MCH 31.0 (25-34) pg MCHC 34.6 (32-36) g/dL RDW Std Deviation 44.0 (36.4-46.3) fL RDW Coeff of Dyana 13.4 (11.5-14.5) % Plt Count 268 (130-400) K/uL MPV 9.2 (7.4-10.4) fL Immature Gran % (Auto) 0.9 % Neut % (Auto) 61.7 % Lymph % (Auto) 22.3 % [place] % (Auto) 13.6 % Eos % (Auto) 1.1 % Baso % (Auto) 0.4 % Neut # (Auto) 3.41 (1.4-6.5) K/uL Lymph # (Auto) 1.23 (1.2-3.4) K/uL [place] # (Auto) 0.75 H (0.11-0.59) K/uL Eos # (Auto) 0.06 (0-0.5) K/uL Baso # (Auto) 0.02 (0-0.2) K/uL Immature Gran # (Auto) 0.05 H (0.00-0.02) K/uL PT (9.0-12.0) Seconds INR (0.9-1.1) Sodium 139 (136-145) mmol/L Potassium 3.3 L (3.5-5.1) mmol/L Chloride 103 (98-107) mmol/L Carbon Dioxide 29 (21-32) mmol/L Anion Gap 7.0 (3-11) BUN 9 (7-18) mg/dl Creatinine 0.88 (0.6-1.2) mg/dl Est Cr Clr Drug Dosing 57.8 ml/min Est GFR ( Amer) 80.5 ml/min Est GFR (Non-Af Amer) 69.4 ml/min BUN/Creatinine Ratio 10.3 (10-20) Glucose 82 (70-99) mg/dl Lactate (0.4-2.0) mmol/L Calcium 9.9 (8.5-10.1) mg/dl Phosphorus 3.0 (2.5-4.9) mg/dl Magnesium 2.0 (1.8-2.4) mg/dl Total Bilirubin 0.7 (0.2-1) mg/dl AST 66 H (15-37) U/L ALT 36 (12-78) U/L Alkaline Phosphatase 74 (45-117) U/L Troponin I < 0.015 (0-0.045) ng/ml Total Protein 7.3 (6.4-8.2) gm/dl Albumin 3.4 (3.4-5.0) gm/dl Globulin 3.9 (2.5-4.0) gm/dl Albumin/Globulin Ratio 0.9 (0.9-2) Lipase 103 (73-393) U/L Procalcitonin 0.16 (0-0.5) ng/ml COVID-19 Eval Order SARS-CoV-2 (PCR) (Negative) 04/08/21 Range/Units 13:45 WBC (4.8-10.8) K/uL RBC (4.2-5.4) M/uL Hgb (12.0-16.0) g/dL Hct (37-47) % MCV (80-100) fL MCH (25-34) pg MCHC (32-36) g/dL RDW Std Deviation (36.4-46.3) fL RDW Coeff of Dyana (11.5-14.5) % Plt Count (130-400) K/uL MPV (7.4-10.4) fL Immature Gran % (Auto) % Neut % (Auto) % Lymph % (Auto) % [place] % (Auto) % Eos % (Auto) % Baso % (Auto) % Neut # (Auto) (1.4-6.5) K/uL Lymph # (Auto) (1.2-3.4) K/uL [place] # (Auto) (0.11-0.59) K/uL Eos # (Auto) (0-0.5) K/uL Baso # (Auto) (0-0.2) K/uL Immature Gran # (Auto) (0.00-0.02) K/uL PT 10.3 (9.0-12.0) Seconds INR 1.0 (0.9-1.1) Sodium (136-145) mmol/L Potassium (3.5-5.1) mmol/L Chloride (98-107) mmol/L Carbon Dioxide (21-32) mmol/L Anion Gap (3-11) BUN (7-18) mg/dl Creatinine (0.6-1.2) mg/dl Est Cr Clr Drug Dosing ml/min Est GFR ( Amer) ml/min Est GFR (Non-Af Amer) ml/min BUN/Creatinine Ratio (10-20) Glucose (70-99) mg/dl Lactate (0.4-2.0) mmol/L Calcium (8.5-10.1) mg/dl Phosphorus (2.5-4.9) mg/dl Magnesium (1.8-2.4) mg/dl Total Bilirubin (0.2-1) mg/dl AST (15-37) U/L ALT (12-78) U/L Alkaline Phosphatase (45-117) U/L Troponin I (0-0.045) ng/ml Total Protein (6.4-8.2) gm/dl Albumin (3.4-5.0) gm/dl Globulin (2.5-4.0) gm/dl Albumin/Globulin Ratio (0.9-2) Lipase (73-393) U/L Procalcitonin (0-0.5) ng/ml COVID-19 Eval Order SARS-CoV-2 (PCR) (Negative)
[2021-04-08] MEDS ORDERED: FOSAPREPITANT DIMEGLUMINE 150 MG in SODIUM CHLORIDE 0.9% 145 ML IV ONE (16:30)
[2021-04-08] MEDS ORDERED: ACETAMINOPHEN 325 MG TAB PO PRN (18:32)
[2021-04-08] MEDS ORDERED: ONDANSETRON INJ 2 MG/ML 2 ML VIAL IV PRN (18:32)
[2021-04-08] MEDS ORDERED: NSS + 20MEQ KCL 20 MEQ/1,000 ML BAG IV SCH (19:00)
[2021-04-08] MEDS: traZODone HCL 100 MG TAB PO SCH (20:27)
[2021-04-08] MEDS: metroNIDAZOLE 500 MG TAB PO SCH (20:27)
[2021-04-08] MEDS: CIPROFLOXACIN 500 MG TAB PO SCH (20:27)
[2021-04-08] MEDS: clonazePAM 0.5 MG TAB PO SCH (20:31)
[2021-04-08] MEDS: PANTOprazole 40 MG TAB PO SCH (21:29)
[2021-04-09] MEDS: metroNIDAZOLE 500 MG TAB PO SCH ×3 (03:12→18:01)
[2021-04-09] MEDS: LEVOTHYROXINE SODIUM 75 MCG TABLET PO SCH (05:41)
[2021-04-09 06:27] LABS: Appearance Urine Clear (Clear); Bilirubin Urine Negative (Negative); Blood Urine Negative (Negative); Color Urine Yellow; Glucose Urine UA Negative (Negative); Ketones Urine Trace (Negative); Leukocyte Esterase Urine Negative (Negative); Nitrite Urine Negative (Negative); Protein Urine Negative (Negative); Specific Gravity Urine 1.006 (1.000-1.030); Urobilinogen Urine Negative (Negative)
[2021-04-09 08:14] LABS: Hematocrit (blood only) 37.6 % (37-47); Hemoglobin 12.6 g/dL (12.0-16.0); Mean Corpuscular Hemoglobin 30.7 pg (25-34); Mean Corpuscular Hgb Conc 33.5 g/dL (32-36); Mean Corpuscular Volume 91.7 fL (80-100); Mean Platelet Volume 9.5 fL (7.4-10.4); Platelet Count 232 K/uL (130-400); RDW Coefficient of Variation 13.5 % (11.5-14.5); RDW Standard Deviation 45.1 fL (36.4-46.3); White Blood Count 5.36 K/uL (4.8-10.8)
--- NOTE | 2021-04-09 09:06 | Gastroenterology Progress Note ---
Date of Service April 09, 2021 Assessment & Plan (1) Sphincter of Oddi spasm: Plan: 66-year-old female with PMH hypothyroidism, insulin resistance, GERD, anxiety, depression, h/o sphincter of Oddi dysfunction s/p ERCPw/ sphincterotomy requiring FCMS admitted w/ pain, nausea/vomiting for observations. Labs stable, imaging improving IV emend x 1 Full liquids Start Reglan 5 mg BID tomorrow Questran once daily Carafate slurry BID Pantoprazole BID Hold ozempic OP GES Recall GI as needed. Thank you for allowing us to participate in the care of this patient. Please call with any acute changes, questions or concerns. Please see addendum below with additional recommendation from my supervising physician. Admission and Anticipated Discharge Date Admission Date: April 08, 2021 Supervising Physician Co-Signing Physician Notes I performed a history and physical examination of the patient today, including specifically on physical exam - soft abdomen. I have discussed the patient's management with the advanced practitioner. Please refer to the nurse practitioner's note for the documented findings and plan of care. Doing much better now. Tolerated liquid diet. No nausea or vomiting today. Recommend: Advance diet to full liquids. Continue current meds. OP GES. Recall GI if needed. Subjective Feeling well. Pain, nausea improved Tolerating trial of clears this AM Review of Systems Review of Systems: All systems reviewed & are unremarkable except as noted in HPI & below Physical Exam Constitutional: WD/WN, vitals as above Respiratory: normal respiratory effort Cardiovascular: Rate/Rhythm: regular rate and regular rhythm Gastrointestinal (Abdomen): normal bowel sounds, soft, nontender, no hepatosplenomegaly Skin: no rashes, warm and dry Results & Data ([facility]) Vital Signs (Past 12 Hours) Vital Signs Temp Pulse Resp BP Pulse Ox 04/09/21 07:59 36.6 C 76 16 110/69 95 04/08/21 23:27 36.6 C 81 16 100/64 93 Laboratory Results 04/09/21 04/09/21 04/09/21 Range/Units 07:56 07:56 05:45 WBC 5.36 (4.8-10.8) K/uL RBC 4.10 L (4.2-5.4) M/uL Hgb 12.6 (12.0-16.0) g/dL Hct 37.6 (37-47) % MCV 91.7 (80-100) fL MCH 30.7 (25-34) pg MCHC 33.5 (32-36) g/dL RDW Std Deviation 45.1 (36.4-46.3) fL RDW Coeff of [place] 13.5 (11.5-14.5) % Plt Count 232 (130-400) K/uL MPV 9.5 (7.4-10.4) fL Immature Gran % (Auto) % Neut % (Auto) % Lymph % (Auto) % [place] % (Auto) % Eos % (Auto) % Baso % (Auto) % Neut # (Auto) (1.4-6.5) K/uL Lymph # (Auto) (1.2-3.4) K/uL [place] # (Auto) (0.11-0.59) K/uL Eos # (Auto) (0-0.5) K/uL Baso # (Auto) (0-0.2) K/uL Immature Gran # (Auto) (0.00-0.02) K/uL PT (9.0-12.0) Seconds INR (0.9-1.1) Sodium Pending (136-145) mmol/L Potassium Pending (3.5-5.1) mmol/L Chloride Pending (98-107) mmol/L Carbon Dioxide Pending (21-32) mmol/L Anion Gap Pending (3-11) BUN Pending (7-18) mg/dl Creatinine Pending (0.6-1.2) mg/dl Est Cr Clr Drug Dosing Pending ml/min Est GFR ( Amer) Pending ml/min Est GFR (Non-Af Amer) Pending ml/min BUN/Creatinine Ratio Pending (10-20) Glucose Pending (70-99) mg/dl Lactate (0.4-2.0) mmol/L Calcium Pending (8.5-10.1) mg/dl Phosphorus Pending (2.5-4.9) mg/dl Magnesium Pending (1.8-2.4) mg/dl Total Bilirubin Pending (0.2-1) mg/dl AST Pending (15-37) U/L ALT Pending (12-78) U/L Alkaline Phosphatase Pending (45-117) U/L Troponin I (0-0.045) ng/ml Total Protein Pending (6.4-8.2) gm/dl Albumin Pending (3.4-5.0) gm/dl Globulin Pending (2.5-4.0) gm/dl Albumin/Globulin Ratio Pending (0.9-2) Lipase (73-393) U/L Procalcitonin (0-0.5) ng/ml Urine Color Yellow Urine Appearance Clear (Clear) Urine pH 7.0 (4.5-7.5) Ur Specific [place] 1.006 (1.000-1.030) Urine Protein Negative (Negative) Urine Glucose (UA) Negative (Negative) Urine Ketones Trace H (Negative) Urine Blood Negative (Negative) Urine Nitrite Negative (Negative) Urine Bilirubin Negative (Negative) Urine Urobilinogen Negative (Negative) Ur Leukocyte Esterase Negative (Negative) COVID-19 Eval Order SARS-CoV-2 (PCR) (Negative) 04/08/21 04/08/21 04/08/21 Range/Units 16:12 14:20 14:20 WBC (4.8-10.8) K/uL RBC (4.2-5.4) M/uL Hgb (12.0-16.0) g/dL Hct (37-47) % MCV (80-100) fL MCH (25-34) pg MCHC (32-36) g/dL RDW Std Deviation (36.4-46.3) fL RDW Coeff of [place] (11.5-14.5) % Plt Count (130-400) K/uL MPV (7.4-10.4) fL Immature Gran % (Auto) % Neut % (Auto) % Lymph % (Auto) % [place] % (Auto) % Eos % (Auto) % Baso % (Auto) % Neut # (Auto) (1.4-6.5) K/uL Lymph # (Auto) (1.2-3.4) K/uL [place] # (Auto) (0.11-0.59) K/uL Eos # (Auto) (0-0.5) K/uL Baso # (Auto) (0-0.2) K/uL Immature Gran # (Auto) (0.00-0.02) K/uL PT (9.0-12.0) Seconds INR (0.9-1.1) Sodium (136-145) mmol/L Potassium (3.5-5.1) mmol/L Chloride (98-107) mmol/L Carbon Dioxide (21-32) mmol/L Anion Gap (3-11) BUN (7-18) mg/dl Creatinine (0.6-1.2) mg/dl Est Cr Clr Drug Dosing ml/min Est GFR ( Amer) ml/min Est GFR (Non-Af Amer) ml/min BUN/Creatinine Ratio (10-20) Glucose (70-99) mg/dl Lactate 1.2 (0.4-2.0) mmol/L Calcium (8.5-10.1) mg/dl Phosphorus (2.5-4.9) mg/dl Magnesium (1.8-2.4) mg/dl Total Bilirubin (0.2-1) mg/dl AST (15-37) U/L ALT (12-78) U/L Alkaline Phosphatase (45-117) U/L Troponin I (0-0.045) ng/ml Total Protein (6.4-8.2) gm/dl Albumin (3.4-5.0) gm/dl Globulin (2.5-4.0) gm/dl Albumin/Globulin Ratio (0.9-2) Lipase (73-393) U/L Procalcitonin (0-0.5) ng/ml Urine Color Urine Appearance (Clear) Urine pH (4.5-7.5) Ur Specific [place] (1.000-1.030) Urine Protein (Negative) Urine Glucose (UA) (Negative) Urine Ketones (Negative) Urine Blood (Negative) Urine Nitrite (Negative) Urine Bilirubin (Negative) Urine Urobilinogen (Negative) Ur Leukocyte Esterase (Negative) COVID-19 Eval Order Covid19 at [facility] SARS-CoV-2 (PCR) NEGATIVE (Negative) 04/08/21 04/08/21 04/08/21 Range/Units 13:50 13:45 13:45 WBC 5.52 (4.8-10.8) K/uL RBC 4.84 (4.2-5.4) M/uL Hgb 15.0 (12.0-16.0) g/dL Hct 43.4 (37-47) % MCV 89.7 (80-100) fL MCH 31.0 (25-34) pg MCHC 34.6 (32-36) g/dL RDW Std Deviation 44.0 (36.4-46.3) fL RDW Coeff of [place] 13.4 (11.5-14.5) % Plt Count 268 (130-400) K/uL MPV 9.2 (7.4-10.4) fL Immature Gran % (Auto) 0.9 % Neut % (Auto) 61.7 % Lymph % (Auto) 22.3 % [place] % (Auto) 13.6 % Eos % (Auto) 1.1 % Baso % (Auto) 0.4 % Neut # (Auto) 3.41 (1.4-6.5) K/uL Lymph # (Auto) 1.23 (1.2-3.4) K/uL [place] # (Auto) 0.75 H (0.11-0.59) K/uL Eos # (Auto) 0.06 (0-0.5) K/uL Baso # (Auto) 0.02 (0-0.2) K/uL Immature Gran # (Auto) 0.05 H (0.00-0.02) K/uL PT (9.0-12.0) Seconds INR (0.9-1.1) Sodium (136-145) mmol/L Potassium (3.5-5.1) mmol/L Chloride (98-107) mmol/L Carbon Dioxide (21-32) mmol/L Anion Gap (3-11) BUN (7-18) mg/dl Creatinine (0.6-1.2) mg/dl Est Cr Clr Drug Dosing ml/min Est GFR ( Amer) ml/min Est GFR (Non-Af Amer) ml/min BUN/Creatinine Ratio (10-20) Glucose (70-99) mg/dl Lactate 2.5 H* (0.4-2.0) mmol/L Calcium (8.5-10.1) mg/dl Phosphorus (2.5-4.9) mg/dl Magnesium (1.8-2.4) mg/dl Total Bilirubin (0.2-1) mg/dl AST (15-37) U/L ALT (12-78) U/L Alkaline Phosphatase (45-117) U/L Troponin I (0-0.045) ng/ml Total Protein (6.4-8.2) gm/dl Albumin (3.4-5.0) gm/dl Globulin (2.5-4.0) gm/dl Albumin/Globulin Ratio (0.9-2) Lipase (73-393) U/L Procalcitonin 0.16 (0-0.5) ng/ml Urine Color Urine Appearance (Clear) Urine pH (4.5-7.5) Ur Specific [place] (1.000-1.030) Urine Protein (Negative) Urine Glucose (UA) (Negative) Urine Ketones (Negative) Urine Blood (Negative) Urine Nitrite (Negative) Urine Bilirubin (Negative) Urine Urobilinogen (Negative) Ur Leukocyte Esterase (Negative) COVID-19 Eval Order SARS-CoV-2 (PCR) (Negative) 04/08/21 04/08/21 Range/Units 13:45 13:45 WBC (4.8-10.8) K/uL RBC (4.2-5.4) M/uL Hgb (12.0-16.0) g/dL Hct (37-47) % MCV (80-100) fL MCH (25-34) pg MCHC (32-36) g/dL RDW Std Deviation (36.4-46.3) fL RDW Coeff of [place] (11.5-14.5) % Plt Count (130-400) K/uL MPV (7.4-10.4) fL Immature Gran % (Auto) % Neut % (Auto) % Lymph % (Auto) % [place] % (Auto) % Eos % (Auto) % Baso % (Auto) % Neut # (Auto) (1.4-6.5) K/uL Lymph # (Auto) (1.2-3.4) K/uL [place] # (Auto) (0.11-0.59) K/uL Eos # (Auto) (0-0.5) K/uL Baso # (Auto) (0-0.2) K/uL Immature Gran # (Auto) (0.00-0.02) K/uL PT 10.3 (9.0-12.0) Seconds INR 1.0 (0.9-1.1) Sodium 139 (136-145) mmol/L Potassium 3.3 L (3.5-5.1) mmol/L Chloride 103 (98-107) mmol/L Carbon Dioxide 29 (21-32) mmol/L Anion Gap 7.0 (3-11) BUN 9 (7-18) mg/dl Creatinine 0.88 (0.6-1.2) mg/dl Est Cr Clr Drug Dosing 57.8 ml/min Est GFR ( Amer) 80.5 ml/min Est GFR (Non-Af Amer) 69.4 ml/min BUN/Creatinine Ratio 10.3 (10-20) Glucose 82 (70-99) mg/dl Lactate (0.4-2.0) mmol/L Calcium 9.9 (8.5-10.1) mg/dl Phosphorus 3.0 (2.5-4.9) mg/dl Magnesium 2.0 (1.8-2.4) mg/dl Total Bilirubin 0.7 (0.2-1) mg/dl AST 66 H (15-37) U/L ALT 36 (12-78) U/L Alkaline Phosphatase 74 (45-117) U/L Troponin I < 0.015 (0-0.045) ng/ml Total Protein 7.3 (6.4-8.2) gm/dl Albumin 3.4 (3.4-5.0) gm/dl Globulin 3.9 (2.5-4.0) gm/dl Albumin/Globulin Ratio 0.9 (0.9-2) Lipase 103 (73-393) U/L Procalcitonin (0-0.5) ng/ml Urine Color Urine Appearance (Clear) Urine pH (4.5-7.5) Ur Specific [place] (1.000-1.030) Urine Protein (Negative) Urine Glucose (UA) (Negative) Urine Ketones (Negative) Urine Blood (Negative) Urine Nitrite (Negative) Urine Bilirubin (Negative) Urine Urobilinogen (Negative) Ur Leukocyte Esterase (Negative) COVID-19 Eval Order SARS-CoV-2 (PCR) (Negative)
[2021-04-09] MEDS: SUCRALFATE 1 GM/10 ML UDC PO SCH ×2 (09:18→20:49)
[2021-04-09] MEDS: lamoTRIgine 100 MG TAB PO SCH (09:18)
[2021-04-09] MEDS: CIPROFLOXACIN 500 MG TAB PO SCH ×2 (09:18→20:49)
[2021-04-09] MEDS: DULoxetine HCL 60 MG CAP PO SCH (09:18)
[2021-04-09] MEDS: PANTOprazole 40 MG TAB PO SCH ×2 (09:18→20:48)
[2021-04-09 09:26] LABS: Albumin Level 2.6 gm/dl (3.4-5.0); BUN Creatinine Ratio 10.5 (10-20); Calcium 8.6 mg/dl (8.5-10.1); Creatinine Clr Calc Pharmacy 100.1 ml/min; Est GFR (African American) 117.8 ml/min; Est GFR (Non-African American) 101.6 ml/min; Magnesium 2.1 mg/dl (1.8-2.4); Potassium 3.4 mmol/L (3.5-5.1)
[2021-04-09 09:31] LABS: Albumin Globulin Ratio 0.9 (0.9-2); Bilirubin,Total 0.5 mg/dl (0.2-1); Phosphorus 3.2 mg/dl (2.5-4.9); Total Protein 5.6 gm/dl (6.4-8.2)
[2021-04-09] MEDS: CHOLESTYRAMINE LIGHT 4 GM PKT PO SCH (10:22)
[2021-04-09] MEDS: POTASSIUM CHLORIDE / WTR 10 MEQ/100 ML PLCT IV SCH ×2 (12:51→16:28)
--- NOTE | 2021-04-09 16:53 | Hospitalist Progress Note ---
Date of Service April 09, 2021 Assessment & Plan (1) Nausea & vomiting: (2) History of biliary duct stent placement: Plan: Patient is a 66-year-old female with PMH hypothyroidism, insulin resistance, GERD, anxiety, depression, h/o sphincter of Oddi dysfunction s/p ERCP in the past who presented to ER with C/O nausea and vomiting. Recent hospitalization at [facility] 04/01/2021-04/06/2021 S/P ERCP with sphincterotomy requiring FCMS placement due to periampullary extravasation presenting with intractable nausea and vomiting. Afebrile, initial pulse 121 down to 82, initial BP 95/62 up to 126/80 after 1 L NSS Patient feeling improved after been given Zofran in ER. Denies abdominal pain No leukocytosis, Normal lipase CT abdomen pelvis: Common bile duct stent is unchanged position fluids, removal of biliary suggest patency of stent, tiny foci of intraperitoneal free air in the RUQ has significantly improved from previous yes, mild infiltration with fluid seen around the CBD, pancreatic head and duodenum that has significantly improved compared to 04/04/2021 CT Received IV emend x 1 and nausea resolved. Tolerated full liquids at lunch without issue Per GI, continue Questran once daily, Carafate slurry BID, Pantoprazole BID Hold ozempic Outpatient gastric emptying study (3) Hypokalemia: Plan: 3.4 Replace and monitor (4) Elevated lactic acid level: Plan: Lactate: 2.5 Repeat lactate is normalized at 1.2 after 1L NSS (5) Hypothyroidism: Plan: Continue levothyroxine (6) Anxiety: (7) Depression: Plan: Continue duloxetine, lamotrigine (8) Insulin resistance: Plan: On Ozempic Hold Ozempic currently DVT Prophylaxis SCDs Full Code as per discussion with pt Follows with Dr May for routine care Pt was seen and care coordinated with Dr Nazario. See addendum Admission and Anticipated Discharge Date Admission Date: April 08, 2021 Supervising Physician Co-Signing Physician Notes Patient is seen and examined at bedside. Abdominal pain, nausea resolved. Tolerated clear liquid diet. No new complaints. Had 1 loose semiformed bowel movement today. On exam patient is moderately built and nourished, no apparent distress, normocephalic atraumatic, lungs are clear to auscultation, normal breath sounds, S1-S2, no murmur, abdomen soft, nontender, normal bowel sounds, alert, awake, oriented, grossly no focal deficits. Intractable nausea, vomiting, splinter of Oddi Spasm. Continue PPI, Carafate, Questran, agree with holding Ozempic. Plan for gastric emptying study as outpatient. Advance diet as tolerated. Received Emend. Appreciate GI input. Please electrolytes as needed. I personally reviewed the record. Patient is interviewed and examined at bedside. Patient's care is coordinated with Samanta Reveles PA-C. Please refer to the documentation above for details of patient's presentation and for discussion of other issues. Subjective Patient seen and examined in 379-1. Abdominal pain and nausea improved. Advance from clears to full liquids at lunch and tolerated without issue. Anxious to see if she will tolerate another meal prior to going home. Denies any fever, chills, chest pain, shortness of breath, dysuria. Small bowel movements with limited p.o. intake. Review of Systems Review of Systems: At least ten systems reviewed and negative except as noted in the HPI. Physical Exam Physical Exam: Gen: WD/WN, NAD, lying in bed, A&Ox3 HEENT: Normocephalic, atraumatic, conjunctivae moist, sclerae anicteric, mucous membranes moist Lung: Clear to Auscultation bilaterally, no wheezes/rales/rhonchi Heart: Regular rate, regular rhythm, no murmurs, rubs, or gallops Abdomen: Soft, NT, ND +BS x 4 Extremities: no edema Skin: Warm, no rash Results & Data Results & Data ([facility]) Vital Signs (Past 12 Hours) Vital Signs Temp Pulse Resp BP BP Pulse Ox 04/09/21 15:49 36.8 C 62 16 146/88 H 98 04/09/21 07:59 36.6 C 76 16 110/69 95 Laboratory Results Short CBC 04/09/21 Range/Units 07:56 WBC 5.36 (4.8-10.8) K/uL Hgb 12.6 (12.0-16.0) g/dL Hct 37.6 (37-47) % Plt Count 232 (130-400) K/uL BMP 04/09/21 07:56 Sodium 141 Potassium 3.4 L Chloride 109 H Carbon Dioxide 29 BUN 5 L Creatinine 0.51 L D Glucose 79 Calcium 8.6 Liver Function 04/09/21 Range/Units 07:56 Total Bilirubin 0.5 (0.2-1) mg/dl AST 31 (15-37) U/L ALT 25 (12-78) U/L Alkaline Phosphatase 54 (45-117) U/L Albumin 2.6 L (3.4-5.0) gm/dl Urine 04/09/21 Range/Units 05:45 Urine Color Yellow Urine Appearance Clear (Clear) Urine pH 7.0 (4.5-7.5) Ur Specific [place] 1.006 (1.000-1.030) Urine Protein Negative (Negative) Urine Glucose (UA) Negative (Negative) Diagnostic Findings Abdomen/Pelvis CT 04/08/21 13:18 CT SCAN OF THE ABDOMEN AND PELVIS WITHOUT IV CONTRAST CLINICAL HISTORY: Nausea and vomiting. Generalized abdominal pain. Recent biliary stent placement. COMPARISON STUDY: Abdominal CT dated 04/04/2021 and 04/02/2021. TECHNIQUE: CT scan of the abdomen and pelvis is performed from the lung bases to the proximal femora. Images are reviewed in the axial, sagittal, and coronal planes. IV contrast was not administered for this examination. Note that the examination is suboptimal without IV contrast. A dose lowering technique was utilized adhering to the principles of ALARA. CT DOSE: 512.68 mGycm FINDINGS: Lung bases: The heart is normal in size and without pericardial effusion. There is no airspace consolidation or pleural effusion. Atelectasis is seen at the lung bases. A 3 mm left lower lobe pulmonary nodule is seen on image #31 and a 4 mm right middle lobe nodule is seen on image #4. Liver: The unenhanced liver is normal in size, contour, and attenuation. A common bile duct stent is unchanged in position as compared to prior studies. This extends from the mid common bile duct into the duodenum. Pneumobilia suggests patency of the stent. There is no intrahepatic biliary ductal dilatation. Gallbladder: Surgically absent noting clips in the gallbladder fossa. Spleen: Normal in size and attenuation. Pancreas: Mild infiltration and fluid seen around the common bile duct, proximal duodenum, and pancreatic head has improved from previous. The unenhanced pancreas is otherwise grossly unremarkable. Adrenal glands: Unremarkable. Kidneys: The unenhanced kidneys are normal in size and without hydronephrosis. There are no renal calculi identified. There is no evidence of contour deforming renal mass lesion. Abdominal vasculature: The abdominal aorta is normal in course and caliber. Bowel: There is no bowel obstruction. Residual enteric contrast is seen in the colon. The appendix is not identified and reported surgically absent. Peritoneum: There are scattered foci of residual intraperitoneal free air. This has significantly improved from previous. There is a small fat-containing umbilical hernia. Lymphadenopathy: None. Pelvic viscera: The bladder and uterus are normal as visualized. A 2 cm simple cystic lesion is noted in the left ovary on image #316. Skeletal structures: The skeletal structures are osteopenic. There is mild to moderate lumbosacral spondylosis. No lytic or blastic lesions are seen. IMPRESSION: 1. The gallbladder is surgically absent and the common bile duct stent is unchanged in position. Pneumobilia suggests patency of the stent. 2. There are tiny foci of intraperitoneal free air in the right upper quadrant. This has significantly improved from previous. 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 3. There is mild infiltration and fluid seen around the common bile duct, the pancreatic head, and the duodenum. This has significantly improved as compared to 04/04/2021, and is likely related to the history of bile leak. Mild acute pancreatitis is not excluded. Correlate with serum lipase levels. 4. No organized/drainable fluid collection is seen in the right upper quadrant on this unenhanced examination. 5. There is improved aeration at the lung bases as compared to previous. A small right pleural effusion has resolved. 6. Additional findings as above. ACT 112: Negative or not required by law. Electronically signed by: Jesús Villeda M.D. 04/08/2021 2:05 PM
[2021-04-09] MEDS: traZODone HCL 100 MG TAB PO SCH (20:49)
[2021-04-09] MEDS: clonazePAM 0.5 MG TAB PO SCH (20:52)
[2021-04-10] MEDS: metroNIDAZOLE 500 MG TAB PO SCH ×2 (02:42→11:10)
[2021-04-10] MEDS: LEVOTHYROXINE SODIUM 75 MCG TABLET PO SCH (06:04)
[2021-04-10] MEDS: lamoTRIgine 100 MG TAB PO SCH (08:51)
[2021-04-10] MEDS: DULoxetine HCL 60 MG CAP PO SCH (08:51)
[2021-04-10] MEDS: CIPROFLOXACIN 500 MG TAB PO SCH (08:51)
[2021-04-10] MEDS: SUCRALFATE 1 GM/10 ML UDC PO SCH (08:52)
[2021-04-10] MEDS: PANTOprazole 40 MG TAB PO SCH (08:52)
[2021-04-10 09:18] LABS: BUN Creatinine Ratio 5.1 (10-20); Calcium 9.4 mg/dl (8.5-10.1); Creatinine Clr Calc Pharmacy 100.1 ml/min; Est GFR (African American) 117.8 ml/min; Est GFR (Non-African American) 101.6 ml/min; Potassium 3.5 mmol/L (3.5-5.1)
[2021-04-10] MEDS: CHOLESTYRAMINE LIGHT 4 GM PKT PO SCH (10:19)
--- NOTE | 2021-04-10 12:13 | Discharge Summary ---
Date of Service April 10, 2021 Admission HPI Per Admitting Provider Patient is a 66-year-old female with PMH hypothyroidism, insulin resistance, GERD, anxiety, depression, h/o sphincter of Oddi dysfunction s/p ERCP in the past who presented to ER with C/O nausea and vomiting. Patient with recent History hospitalization at [facility] 04/01/2021-04/06/2021 S/P ERCP with sphincterotomy requiring FCMS placement due to periampullary extravasation (Type II). She initially was kept n.p.o. and given IVF, IV Cipro and Flagyl, IV PPI antibiotic and antiemetics. Initial CT abdomen/pelvis on 04/02/2021 with pneumoperitoneum and fat stranding secondary to biliary leak. Repeat CT abdomen pelvis on 04/04/2021 showed no extravasation of oral contrast, stable pneumobilia, patent metallic CBD stent in good position. GI had felt findings were expected with no leak and there was no extravasation of oral contrast and stent in good position. Patient was transitioned to and tolerated oral liquid diet prior to discharge. Per GI recommendation patient was to continue with liquid diet for 48 hours and advance to soft diet for 48 hours and continue gastroparesis diet. She was discharged on Cipro and Flagyl to complete 10-day course. Since being home reports attempted to drink a milkshake and had nausea, vomiting. She then resumed liquid diet. She was given prescription for Phenergan by GI however reports did not help. Patient states continues with nausea and vomiting. She reports during vomiting episode had sharp pain to right upper abdomen. Denies any further abdominal pain. Today had loose BM. Denies fever/chills, diaphoresis, hematemesis, hematochezia, melena THEODORE, dizziness, syncope, vision changes, neck pain, CP, SOB, orthopnea, palpitations, cough, sore throat, choking, otalgia, rhinorrhea, paresthesias, weakness, extremity weakness, extremity edema, rashes, urinary symptoms. Today in ER patient afebrile, initial pulse 121 down to 82, initial BP 95/62 up to 126/80 after 1 L NSS. Patient feeling improved after been given Zofran. CT abdomen pelvis: Common bile duct stent is unchanged position fluids, removal of biliary suggest patency of stent, tiny foci of intraperitoneal free air in the RUQ has significantly improved from previous yes, mild infiltration with fluid seen around the CBD, pancreatic head and duodenum that has significantly improved compared to 04/04/2021 CT. GI has seen patient in ER and recommends observation overnight and plans to give IV Emend and clear liquid diet. Admission Exam Per Admitting Provider Physical Exam: General: no distress, WDWN Head: normocephalic, atraumatic Eyes: conjunctiva non-injected, anicteric ENT: normal inspection external ears, nose, mucous membranes mildly dry Neck: supple, trachea midline Lungs: clear, no respiratory distress, no wheezing/rhonchi/rales CV: RRR, no murmur, no pretibial edema Abd: normal BS, soft, non-tender to palpation Ext: no cyanosis, no calf tenderness Neuro: A&O x 3, no focal deficits noted, normal affect Skin: warm, dry Principal Diagnosis Nausea & vomiting History of biliary duct stent placement Discharge Exam Gen: WD/WN, NAD, lying in bed, A&Ox3 HEENT: Normocephalic, atraumatic, conjunctivae moist, sclerae anicteric, mucous membranes moist Lung: Clear to Auscultation bilaterally, no wheezes/rales/rhonchi Heart: Regular rate, regular rhythm, no murmurs, rubs, or gallops Abdomen: Soft, NT, ND +BS x 4 Extremities: no edema Skin: Warm, no rash Discharge Data Allergies Allergy/AdvReac Type Severity Reaction Status Date / Time amoxicillin Allergy Unknown Unverified 04/08/21 14:37 azithromycin Allergy Unknown Unverified 04/08/21 14:37 Penicillins Allergy Unknown Unverified 04/08/21 14:37 Consultations 04/08/21 15:22 ED Decision to Admit Stat 04/08/21 18:32 Consult Gastroenterology Routine Ordered Studies 04/08/21 13:18 CT abd pelvis wo con Stat Hospital Course (1) Nausea & vomiting: (2) History of biliary duct stent placement: (3) Hypokalemia: (4) Elevated lactic acid level: (5) Hypothyroidism: (6) Anxiety: (7) Depression: (8) Insulin resistance: This is a 66-year-old female with PMH hypothyroidism, insulin resistance, GERD, anxiety, depression, h/o sphincter of Oddi dysfunction s/p ERCP in the past who presented to ER with C/O nausea and vomiting. Was recently hospitalized at [facility] from 04/01-04/06 s/p ERCP with sphincterotomy requiring FCMS placement due to periampullary extravasation presenting with intractable nausea and vomiting. CT abdomen pelvis shows that common bile duct stent is unchanged position fluids, removal of biliary suggest patency of stent, tiny foci of intraperitoneal free air in the RUQ has significantly improved from previous yes, mild infiltration with fluid seen around the CBD, pancreatic head and duodenum that has significantly improved compared to 04/04/2021 CT. GI evaluated and gave IV Emend x 1 today. Recommend continuing Questran once daily, Carafate slurry BID, Pantoprazole BID until follow up with Dr. Barrios. Instructed to hold ozempic as it may be causing GI side effects. Continue course Cipro and Flagyl prescribed on previous admission. Scheduled for an outpatient gastric emptying study and GI follow up. Tolerating full liquid diet without issue, instructed to advance to soft and then gastroparesis diet as tolerated. Patient comfortable and hymodynamically stable at time of discharge. Total Time Total Time Spent Total Time Spent (In Minutes): 35 Discharge Plan Discharge Items Patient Disposition: Home - Self-Care Reason For Visit: N/V Discharge Diagnosis: Nausea & vomiting History of biliary duct stent placement Activity: Resume your previous activity Non-emergency contact: Primary Care Provider and News Librarian Call non-emergency contact if: you have any medication questions, your symptoms worsen, your pain is not controlled and you have a fever Follow-up/Referrals: Shonda May, [Primary Care Provider] - 04/13/21 11:00 am (Date & Time 04/13/2021 11:00 AM Provider Octaviano Awad MD Department [facility] [place] ) Diet: Full liquid Diet Comment: advance as tolerated Addtl Attending Provider Instructions: Tena, You were admitted with nausea and vomiting in setting of recent biliary stent placement. You received 1 dose of IV Emend for nausea with improvement. You are currently tolerating full liquid diet without issue. Advance to a soft diet and then gastroparesis diet as tolerated. Please follow up with GI for outpatient gastric emptying study. Finish course of Cipro and Flagyl prescribed on previous admission. MEDICATION CHANGES: Start Questran once daily Continue Carafate slurry twice daily and Pantoprazole twice daily until follow up with Dr. Barrios HOLD Ozempic OTHER INSTRUCTIONS: Seek medical attention if you have: * temperature above 101 * chest pain or trouble breathing * abdominal pain, nausea, vomiting * diarrhea, dark stools or bloody stools * any unanswered questions or concerns Call 911 if symptoms are severe. Please take good care of yourself. Call if you have any questions or problems. You can reach a [facility] hospitalist on duty at [facility] 24 hours a day by calling [phone]. Samanta Reveles PA-C [facility] Hospitalist Pending Studies at Discharge: No Stand-Alone Forms: My [facility], Smoking Cessation Medications and DC Order Prescriptions: New cholestyramine-aspartame [Cholestyramine Light] 4 gram Powder In Packet 4 g PO DAILY Qty: 30 RF: 0 Continued promethazine 25 mg tablet 25 mg PO Q8H PRN (Reason: Nausea) RF: 0 metronidazole 500 mg tablet 500 mg PO Q8H RF: 0 ciprofloxacin HCl 500 mg tablet 500 mg PO BID RF: 0 sucralfate 1 gram tablet 1 g PO BID Qty: 60 RF: 0 pantoprazole 40 mg tablet,delayed release (DR/EC) 40 mg PO BID Qty: 60 RF: 0 sumatriptan succinate 100 mg Tablet 100 mg PO DAILY PRN (Reason: Migraine Headache) RF: 0 clonazepam 0.5 mg tablet 0.5 mg PO HS RF: 0 lamotrigine 25 mg tablet 100 mg PO QAM RF: 0 levothyroxine [Synthroid] 75 mcg Tablet 75 mcg PO DAILY RF: 0 trazodone 100 mg Tablet 100 mg PO HS RF: 0 clindamycin phosphate 1 % Lotion 1 applic TOPICAL BID RF: 0 duloxetine 60 mg Capsule, Delayed Rel Sprinkle 120 mg PO QAM RF: 0 Discontinued Ozempic 0.25 mg or 0.5 mg(2 mg/1.5 mL) pen injector 0.25 mg SUBCUT WK RF: 0 Discharge Orders: Discharge Order (Routine); Ordered 04/10/21 Ordered By: Samanta Reveles Admission Data Admit Date/Time: 04/09/21 16:58 Attending Provider: Brannon Nazario Admit Provider: Brannon Nazario Primary Care Provider: Shonda May Other Providers: Brannon Nazario ; Scott Barrios Other Interventions: Discharge Summary Assessment (RN) Last Done: 04/10/21 12:09 Supervising Physician Co-Signing Physician Notes Patient is seen and examined at bedside today . States feeling a lot better today. Nausea, vomiting, abdominal pain completely resolved. Tolerated diet with no issues.On exam patient is moderately built and nourished, no apparent distress, normocephalic atraumatic, lungs are clear to auscultation, normal breath sounds, S1-S2, no murmur, abdomen soft, nontender, normal bowel sounds, alert, awake, oriented, grossly no focal deficits. Intractable nausea, vomiting, splinter of Oddi Spasm. Continue PPI BID, Carafate, Questran. Ozempic discontinued. Plan for gastric emptying study as outpatient. Appreciate GI input. Advised to follow-up with GI upon discharge. I personally reviewed the record. Patient is interviewed and examined at bedside. Patient's care is coordi nated with Samanta Reveles PA-C. Please refer to the documentation above for details of patient's presentation and for discussion of other issues.
--- NOTE | 2021-04-16 09:30 | Coding Query ---
CODING QUERY To promote full compliance with coding requirements relating to patient care, provider participation is requested in all cases of provider network manager uncertainty. Please assist us with the question(s) below: Coding Question(s): Patient admitted with nausea / vomiting. History of sphincter of Oddi spasm & stent. 04/08 GI consult suggested gastroparesis as a possible etiology of N&V. Please document, if known or suspected, the etiology for the nausea and vomiting. Thank you . Walter Smith [facility] Physician's Response(s): Suspected gastroparesis Principal Diagnosis: "that condition established after study, to be chiefly responsible for occasioning the admission of the patient to the hospital for care." Co-Existing Principal Diagnosis: "when two or more diagnoses equally meet the criteria for principal diagnosis as determined by the circumstances of admission, diagnostic work up, and/or therapy provided, and the Alphabetic Index, Tabular List, or another coding guideline does not provide sequencing direction, any one of the diagnoses may be sequenced first." "When the physician has documented what appears to be a current diagnosis in the body of the record, but has not included the diagnosis in the final diagnostic statement, the physician should be asked whether the diagnosis should be added." (Source Coding Clinic 2 QTR90. p3-4) TG
== END 2021-04-10 12:40 | disposition home or self-care (01) | DRG 392 ==
LOC: ED 12:57 → 3N 12:57